=== PATIENT | female | born 1955 | race Caucasian/White ===

== ENCOUNTER 2019-07-18 14:30 | Inpatient (IN) | payer BC ==
[2019-07-18] MEDS ORDERED: POLYETHYL GLY 3350 17 GM/DOSE PO PRN (15:00)
[2019-07-18] MEDS ORDERED: ONDANSETRON 4 MG/2 ML VIAL IV PRN (15:00)
[2019-07-18] MEDS ORDERED: LOPERAMIDE HCL 2 MG CAPSULE PO PRN (15:00)
[2019-07-18] MEDS ORDERED: ONDANSETRON 4 MG (ODT) TAB PO PRN (15:00)
[2019-07-18 15:33] LABS: Absolute Lymphocytes (CBC) 2.9 K/uL (0.7-4.9); Basophils % 0.9 % (0-1.3); Lymphocytes % 24.7 % (15.3-44.8)
[2019-07-18 15:44] LABS: Protime INR 0.99
--- NOTE | 2019-07-18 15:52 | RAD REPORT ---
EXAM DESCRIPTION: CT - Stone Protocol - 07/18/2019 3:42 pm CLINICAL HISTORY: Flank pain. flank pain COMPARISON: CT ABD PELVIS W CONTRAST dated 12/25/2006 TECHNIQUE: Axial images were obtained without oral or IV contrast. Lack of contrast limits solid org an and vascular assessment. The [id number] spans the entirety of the system partially obscuring uppermost abdomen and lung bases. Coronal reformatted images were obtained and reviewed. All CT scans are performed using dose optimization technique as appropriate and may include automated exposure control or mA/KV adjustment according to patient size. FINDINGS: The lower lung morataya are clear. Mild diffuse fatty liver. The spleen is normal sized.The gallbladder is mildly distended. The pancrea s and adrenal glands are normal. No pathologic lymphadenopathy in the abdomen or pelvis. No urinary tract stones or obstructive uropathy. No bowel obstruction, free air, free fluid or abscess. Normal appendix noted. Mild lower lumbar spondylosis. IMPRESSION: No urinary tract stones or obstructive uropathy. Fatty liver. Gallbladder distension. Gallbladder ultrasound could be performed if further assessment is clinically needed.
--- NOTE | 2019-07-18 16:12 | RAD REPORT ---
EXAM DESCRIPTION: RAD - Chest Pa And Lat (2 Views) - 07/18/2019 4:06 pm CLINICAL HISTORY: flank pain Chest pain. COMPARISON: No comparisons TECHNIQUE: PA and lateral views of the chest were obtained. FINDINGS: The lungs are hyperexpanded compatible with COPD. The heart is upper limit of normal in si ze. No fracture or aggressive bony process. IMPRESSION: COPD without acute process identified.
[2019-07-18 16:14] LABS: Albumin 3.8 g/dL (3.4-5.0); Bilirubin Direct 0.1 mg/dL (0-0.2); Bilirubin Total 0.6 mg/dL (0.2-1.0); Magnesium 2.4 mg/dL (1.8-2.4); Phosphorus 3.4 mg/dL (2.5-4.9); Potassium 4.1 mmol/L (3.5-5.1); Protein, Total 8.1 g/dL (6.4-8.2); Thyroid Stimulating Hormone 1.41 uIU/mL (0.360-3.740)
[2019-07-18 16:49] VITALS: BMI 43.9
[2019-07-18] MEDS: NACHLORIDE 0.45% 1,000 ML IV SCH (17:07)
[2019-07-18] MEDS: HYDROMORPHONE HCL 1 MG/ML INJ IV PRN ×2 (18:57→21:38)
[2019-07-18 19:46] LABS: Urine Appearance CLEAR; Urine Bilirubin NEGATIVE (NEG); Urine Blood NEGATIVE (NEG); Urine Color YELLOW; Urine Glucose 3+ (NEG); Urine Protein NEGATIVE (NEG); Urine Urobilinogen 0.2 mg/dL (0.2-1.0); Urine pH 5.5 (5.0-7.0)
[2019-07-18 19:57] LABS: Urine Microscopic Reflex ORDER UMIC
[2019-07-18 20:05] LABS: UR MICROALBUMIN 0.6 mg/dL (< 1.9)
[2019-07-18 20:07] LABS: Urine Bacteria LOADED /HPF (<20); Urine Culture Reflex Order NOT NEEDED; Urine RBC NONE SEEN /HPF (NONE SEEN)
[2019-07-18] MEDS ORDERED: INSULN ASP SQ SCH (21:00)
[2019-07-18] MEDS ORDERED: HUMALOG MIX 75/25 100 UNITS/ML SQ SCH (21:00)
[2019-07-18] MEDS ORDERED: INSULIN ASPART PROT SQ SCH (21:00)
[2019-07-18] MEDS ORDERED: HOME MED 1 EA UNK (Metformin Hcl [Metformin Hcl] 1,000 MG) PO SCH (21:00)
[2019-07-18] MEDS ORDERED: ATORVASTATIN 10 MG TAB PO SCH (21:00)
[2019-07-18] MEDS: carvediloL 6.25 MG TAB PO SCH (21:00)
[2019-07-18] MEDS: DIPHENHYDRAMINE 25 MG TAB/CAP PO PRN (21:38)
[2019-07-18] MEDS ORDERED: CEFTRIAXONE 1 GM/NS 50 ML 1 GM/50 ML BAG IV SCH (22:00)
[2019-07-18] MEDS: CEFTRIAXONE/SWI 1gm 1 GM/10 ML SYR IV SCH (23:32)
[2019-07-19] MEDS: ACETAMINOPHEN 325 MG TABLET PO PRN (01:30)
[2019-07-19] MEDS: HYDROMORPHONE HCL 1 MG/ML INJ IV PRN ×6 (02:53→23:38)
[2019-07-19] MEDS: NACHLORIDE 0.45% 1,000 ML IV SCH ×2 (04:57→21:08)
[2019-07-19 05:59] LABS: Basophils % 0.4 % (0-1.3); Hematocrit 41.3 % (36.0-45.0); Lymphocytes % 21.2 % (15.3-44.8); RBC Red Blood Cell Count 4.77 M/uL (3.86-4.86)
[2019-07-19 06:02] LABS: Magnesium 2.5 mg/dL (1.8-2.4); Potassium 4.3 mmol/L (3.5-5.1)
[2019-07-19] MEDS ORDERED: METFORMIN HCL 500 MG TAB PO SCH (08:00)
[2019-07-19] MEDS ORDERED: INSULIN ASPART SQ SCH (08:00)
[2019-07-19] MEDS ORDERED: INSULIN ASPART PROTAMINE SQ SCH (08:00)
[2019-07-19] MEDS ORDERED: HUMALOG MIX 75/25 100 UNITS/ML SQ SCH (08:00)
--- NOTE | 2019-07-19 08:51 | RAD REPORT ---
EXAM DESCRIPTION: US - Abdomen Exam Limited - 07/19/2019 8:25 am CLINICAL HISTORY: GALL BLADDER DISTENSION. COMPARISON: Abdomen Exam Complete dated 10/07/2018 FINDINGS: The gallbladder demonstrates distention without evidence of gallstones. No pericholecystic fluid or gallbladder wall thickening. The common bile duct is normal measuring 5 mm.. The liver demonstrates no findings of intrahepatic biliary dilatation. IMPRESSION: Gallbladder distention without evidence of gallstones.
[2019-07-19] MEDS ORDERED: FUROSEMIDE 40 MG TABLET PO SCH (09:00)
[2019-07-19] MEDS ORDERED: PANTOPRAZOLE 40MG TABLET PO SCH (09:00)
[2019-07-19] MEDS ORDERED: POTASSIUM CL SA 10 MEQ TAB PO SCH (09:00)
[2019-07-19] MEDS ORDERED: HOME MED 1 EA UNK (Pravastatin Sodium [Pravastatin Sodium] 80 MG) PO SCH (09:00)
[2019-07-19] MEDS ORDERED: HOME MED 1 EA UNK (Omeprazole [Omeprazole] 20 MG) PO SCH (09:00)
[2019-07-19] MEDS: carvediloL 6.25 MG TAB PO SCH (09:00)
[2019-07-19] MEDS: CEFTRIAXONE/SWI 1gm 1 GM/10 ML SYR IV SCH (10:25)
[2019-07-19] MEDS: ENOXAPARIN 40 MG/0.4 ML SQ SCH (10:26)
[2019-07-19] MEDS: INSULN ASP SQ SCH ×2 (10:27→21:00)
[2019-07-19] MEDS: INSULIN ASPART PROT SQ SCH ×2 (10:27→21:00)
[2019-07-19] MEDS: CARVEDILOL 6.25 MG PO SCH ×2 (10:28→17:24)
[2019-07-19] MEDS: POTASSIUM CHLORIDE 10 MEQ ER TABLET PO SCH (10:29)
[2019-07-19] MEDS: FUROSEMIDE 40 MG TABLET PO SCH (10:29)
[2019-07-19] MEDS: OMEPRAZOLE 20 MG PO SCH (10:29)
[2019-07-19] MEDS: METFORMIN HCL 1000 MG PO SCH (17:24)
[2019-07-19] MEDS: PRAVASTATIN 80 MG PO SCH (17:25)
--- NOTE | 2019-07-19 18:06 | CON ---
Date of Consultation: 07/19/2019 Reason For Consultation: Abdominal pain. History Of Present Illness: The patient is a 64-year-old female who comes in with a couple of day hi story of right back and possibly right upper quadrant pain. Denies any nausea, vomiting, diarrhea, c onstipation. Denies any dysuria or hematuria. No sore throat, runny nose, cough, headaches, or dizz iness. No chest pain. No fever or chills. Occasional heartburn. No bloating or belching. She sta angela that the pain is sort of in the back where her previous kidney infection she hurt, but she does n ot have any of the other symptoms and she had a CAT scan done and ultrasound done which showed a dist ended gallbladder and I was consulted. Review of Systems: Otherwise unremarkable. Past Medical History: Diabetes, hypertension, obesity. Past Surgical History: Achilles tendon surgery and tubal ligation. Allergies: INCLUDE RAMIPRIL. Social History: Patient denies smoking or drinking. Family History: Noncontributory. Physical Examination: Vital Signs: Stable. She is afebrile. General: She is awake, alert, and oriented x3. Head and Neck: Cranial nerves 2 through 12 are grossly within normal limits. No neck masses. No JV D. Throat clear. Neck is supple. Chest: Clear. Heart: S1, S2. Abdomen: Soft, nondistended, positive bowel sounds. Minimal right lateral abdomen tenderness. Extremities: Adequately perfused. Nontender. Neuro: Nonfocal. Back: She has mild right CVA tenderness. Laboratory Data: Her urine which was a clean-catch shows 3+ glucose, positive nitrite, loaded bacter ia, 5-10 white cells. Hematology on admission, white count 11.9, today it is 9.6. There is no left shift. INR is 0.99. Chemistry reviewed. Glucose is slightly elevated. Otherwise unremarkable. CT of the abdomen-pelvis and ultrasound of the abdomen reviewed, does not show any cholelithiasis, does show a distended gallbladder without evidence of cholecystitis. Assessment: A 64-year-old female with a right-sided lateral abdominal pain and back pain. Recommendation: Although the likelihood of acute cholecystitis is low, we will go ahead and get a HI DA scan to rule that out. I discussed the case with Dr. Ross. We will also get a straight cath to m edyta sure there is not any UTI or pyelonephritis and once those tests had done, we will make further r ecommendation. No need for any acute surgical intervention at this time. We will follow this patien t while in the hospital. BIGG/JORDAN Voice ID: [id number] Report ID: [id number]
[2019-07-19 19:57] LABS: Urine Appearance CLEAR; Urine Bilirubin NEGATIVE (NEG); Urine Blood NEGATIVE (NEG); Urine Color YELLOW; Urine Glucose 3+ (NEG); Urine Protein NEGATIVE (NEG); Urine Urobilinogen 0.2 mg/dL (0.2-1.0)
[2019-07-19 20:47] LABS: Urine Microscopic Reflex NO UMIC
[2019-07-19] MEDS: DIPHENHYDRAMINE 25 MG TAB/CAP PO PRN (21:05)
--- NOTE | 2019-07-19 22:36 | PN ---
Subjective: Patient is feeling little better than yesterday. Denies chest pain, nausea, vomiting. Has some flank pain. Has also right upper quadrant pain now. Denies any double vision, blurred visi on, paralysis, tingling, numbness. Physical Examination: Vital Signs: Blood pressure 160/74, afebrile at 97.4. HEENT: No JVD. No carotid bruits. Chest: Clear. Heart: Regular. Abdomen: Right upper quadrant tender. No rebound. No guarding. Laboratory Examination: White count is down to 9.6. Urine culture has trace positive nitrites, but not enough to explain the amount of pain she has. Ordered sonogram which shows dilatation of the gal lbladder and Dr. Summers has ordered HIDA scan for tomorrow. Assessment And Plan: Unclear whether pain is from cholecystitis or pyelonephritis. The amount of pa in she has is not explained by the nitrites positive trace. I will order another UA, urine culture, straight cath to clarify this and HIDA scan tomorrow by Dr. Summers. JOYCELYN/MODL Voice ID: [id number] Report ID: [id number]
[2019-07-20 05:52] LABS: Absolute Lymphocytes (CBC) 2.1 K/uL (0.7-4.9); Basophils % 0.7 % (0-1.3); Hematocrit 43.7 % (36.0-45.0); Lymphocytes % 22.8 % (15.3-44.8)
[2019-07-20 06:09] LABS: Magnesium 2.5 mg/dL (1.8-2.4); Potassium 4.2 mmol/L (3.5-5.1)
[2019-07-20] MEDS: HYDROMORPHONE HCL 1 MG/ML INJ IV PRN ×5 (06:56→23:17)
[2019-07-20] MEDS: METFORMIN HCL 1000 MG PO SCH ×2 (08:00→18:58)
[2019-07-20] MEDS: INSULIN ASPART PROT SQ SCH ×2 (08:00→20:35)
[2019-07-20] MEDS: INSULN ASP SQ SCH ×2 (08:00→20:35)
--- NOTE | 2019-07-20 08:09 | RAD REPORT ---
EXAM DESCRIPTION: NM - Hepatobiliary System W/ Ph - 07/20/2019 7:14 am CLINICAL HISTORY: Abdominal pain TECHNIQUE: The patient was administered 6.3 millicuries technetium Choletec intravenous and images o f the abdomen obtained for 19 minutes. Patient was given 2.8 micrograms Kinevac intravenously and sofia ges of the gallbladder obtained for 30 minutes FINDINGS: Liver demonstrates prompt radiotracer uptake. Activity is seen within the gallbladder by 11 minutes. After the administration of cck gallbladder ejection fraction equals 36% (normal values greater than 35% Uptake is seen within small bowel. Patient complained of pain 8/10 prior to CCK. Pain increased to 10/10 during administration CCK IMPRESSION: No evidence of acute cholecystitis Gallbladder ejection fraction equals 36% which is lower limits normal
[2019-07-20] MEDS: ACETAMINOPHEN 325 MG TABLET PO PRN (08:46)
[2019-07-20] MEDS: ENOXAPARIN 40 MG/0.4 ML SQ SCH (08:47)
[2019-07-20] MEDS: CEFTRIAXONE/SWI 1gm 1 GM/10 ML SYR IV SCH (08:47)
[2019-07-20] MEDS: OMEPRAZOLE 20 MG PO SCH (08:48)
[2019-07-20] MEDS: FUROSEMIDE 40 MG TABLET PO SCH (08:48)
[2019-07-20] MEDS: POTASSIUM CHLORIDE 10 MEQ ER TABLET PO SCH (08:49)
[2019-07-20] MEDS: CARVEDILOL 6.25 MG PO SCH ×2 (08:49→17:34)
[2019-07-20 08:55] VITALS: O2SAT 98
[2019-07-20] MEDS: NACHLORIDE 0.45% 1,000 ML IV SCH (10:46)
--- NOTE | 2019-07-20 16:45 | P.PN ---
Subjective Date of Service: 07/20/19 Chief Complaint: STILL SEVERE PAIN R BACK, R FLANK. AND SOME PAIN RUQ. Subjective: No new changes PATIENT IS STILL UNCOMFORTABLE TURNING IN BED , GETTING UP ETC. Review of Systems Eyes: As per HPI Physical Examination - Vital Signs Temperature: 98.6 F Blood Pressure: 197/85 Pulse: 66 Respirations: 17 Pulse Ox (%): 98 - Physical Exam General: Alert, Moderate distress, Obese HEENT: Atraumatic, PERRLA, EOMI Neck: Supple, JVD not distended Respiratory: Clear to auscultation bilaterally, Normal air movement Cardiovascular: Regular rate/rhythm, Normal S1 S2 Gastrointestinal: Normal bowel sounds, No tenderness Musculoskeletal: No tenderness Integumentary: No rashes Neurological: Normal speech, Normal tone, Normal affect Lymphatics: No axilla or inguinal lymphadenopathy - Studies Laboratory Data (last 24 hrs) 07/20/19 05:33: Sodium 136, Potassium 4.2, BUN 16, Creatinine 0.98, Glucose 142 H, Magnesium 2.5 H 07/20/19 05:33: WBC 9.3, Hgb 14.8, Hct 43.7, Plt Count 251 Microbiology Data (last 24 hrs): 07/18/19 19:35 Clean Catch Urine Helm Count - Final >100,000 CFU/ML. 07/18/19 19:35 Clean Catch Urine - Final Klebsiella Pneumoniae Medications List Reviewed: Yes Assessment And Plan - Current Problems (Diagnosis) (1) Flank pain Current Visit: Yes Status: Acute Plan: UA NEG. CT NEG. STILL IN SEVERE PAIN. ORDER MRI LS. MORBID OBESITY CAN GIVE RISE TO SPINAL ISSUES. (2) RUQ abdominal pain Current Visit: Yes Status: Acute Plan: TENDER RUQ. SONOGRAM ENLARGED GB BUT HIDA SCAN IS GOOD. EF 36%. (3) HTN (hypertension) Current Visit: Yes Status: Chronic Plan: ADD AMLODOPINE DAILY. 2.5 MG.
[2019-07-20] MEDS: AMLODIPINE 2.5 MG TAB PO SCH ×2 (17:00→19:01)
[2019-07-20] MEDS: PRAVASTATIN 80 MG PO SCH (18:57)
--- NOTE | 2019-07-20 18:59 | RAD REPORT ---
EXAM DESCRIPTION: MRI - Lumbar Spine Wo Con - 07/20/2019 6:02 pm CLINICAL HISTORY: flank pain COMPARISON: No comparisons TECHNIQUE: Sagittal T1-weighted, T2-weighted and T2-STIR weighted sequences were obtained. Axial T1 -weighted and heavily T2-weighted sequenceswere obtained through the lumbar disc levels. FINDINGS: Lumbar bodies are normal in height and alignment. No suspicious marrow signal. No paraspi nal masses. Conus is normal with no clumping or thickening of the cauda equina. T12-L1 level: No significant findings. L1-2 level: No significant findings. L2-3 level: Disc is desiccated. Focal midline disc herniation is present 3 mm AP by 11 mm TR. There i s flattening of the thecal sac. Midline thecal sac diameter is 9 mm. Disc bulge in the left exit fora men does not cause significant encroachment. Facet degenerative changes mild. Ligamentous thickening is mild. L3-4 level: Disc is desiccated. Mild bulging of disc material across the central canal and into each exit foramen. No central spinal stenosis or significant foraminal stenosis. L4-5 level: Disc is desiccated. Minimal disc bulge seen in the central canal. Facet degenerative bill ge and ligamentous thickening are present. Significant protruding disc material and endplate spurring changes cause moderately severe right foraminal stenosis extending into the extraforaminal space. No significant left foramen stenosis. Central canal is borderline stenotic at 10 mm. L5-S1 level: Disc is desiccated. Minimal disc bulge causes slight flattening of the thecal sac on the right side but no central spinal stenosis. No foraminal stenosis. IMPRESSION: Midline L2-3 disc herniation resulting in mild central spinal stenosis. No significant f oraminal stenosis. L4-5 prominent protruding disc material, uncovertebral joint hypertrophy and facet degenerative angel es causing significant right foraminal stenosis. Central canal is mildly stenotic at 9 mm.
[2019-07-21] MEDS: HYDROMORPHONE HCL 1 MG/ML INJ IV PRN ×3 (02:30→09:59)
[2019-07-21 06:08] LABS: Absolute Lymphocytes (CBC) 3.2 K/uL (0.7-4.9); Basophils % 0.6 % (0-1.3); Hematocrit 41.8 % (36.0-45.0); Lymphocytes % 32.6 % (15.3-44.8); MPV 6.9 fL (7.6-11.3); RBC Red Blood Cell Count 4.85 M/uL (3.86-4.86)
[2019-07-21 06:54] LABS: Magnesium 2.5 mg/dL (1.8-2.4); Potassium 3.9 mmol/L (3.5-5.1)
[2019-07-21] MEDS: METFORMIN HCL 1000 MG PO SCH (08:19)
[2019-07-21] MEDS: CEFTRIAXONE/SWI 1gm 1 GM/10 ML SYR IV SCH (08:19)
[2019-07-21] MEDS: POTASSIUM CHLORIDE 10 MEQ ER TABLET PO SCH (08:20)
[2019-07-21] MEDS: OMEPRAZOLE 20 MG PO SCH (08:20)
[2019-07-21] MEDS: FUROSEMIDE 40 MG TABLET PO SCH (08:20)
[2019-07-21] MEDS: CARVEDILOL 6.25 MG PO SCH (08:21)
[2019-07-21] MEDS: ENOXAPARIN 40 MG/0.4 ML SQ SCH (08:22)
[2019-07-21] MEDS: AMLODIPINE 2.5 MG TAB PO SCH (08:22)
[2019-07-21] MEDS: INSULIN ASPART PROT SQ SCH (08:25)
[2019-07-21] MEDS: INSULN ASP SQ SCH (08:25)
[2019-07-21] MEDS ORDERED: AMLODIPINE 2.5 MG TAB PO SCH (09:00)
--- NOTE | 2019-07-21 10:00 | RAD REPORT ---
EXAM DESCRIPTION: CT - Dissection W/Wo Con - 07/21/2019 9:25 am CLINICAL HISTORY: . Chest and abd pain COMPARISON: July 18, 2019 TECHNIQUE: Computed tomography angiography of the chest, abdomen pelvis were obtained. 100 cc Isovue 370 was administered intravenously. Coronal and sagittal reconstruction were performed. All CT scans are performed using dose optimization technique as appropriate and may include automated exposure control or mA/KV adjustment according to patient size. FINDINGS: An aortic dissection is not seen. An aortic aneurysm is not displayed. The celiac, SMA and JOVANA are patent . A lung consolidation is not present. A pericardial effusion is not seen. A pleural effusion is not n oted. Fatty liver. Mild gallbladder distention Spleen, pancreas adrenals kidneys demonstrate no significant abnormality. The appendix is normal. There no evidence diverticulitis. IMPRESSION: Negative for an aortic dissection. Mild gallbladder distention
[2019-07-21 12:43] VITALS: BP 193/78; TEMP 97
[2019-07-21] MEDS ORDERED: AMITRIPTYLINE 10 MG TAB PO SCH (21:00)
== END 2019-07-21 13:51 | disposition home or self-care (01) | DRG 392 ==
LOC: 2ND 14:30 → OBSVTOIN 07-20 07:26
PROVIDERS: ADMIT Internal Medicine; ATTEND Internal Medicine
DX: R10.11 Right upper quadrant pain (principal); Z68.41 Body mass index [BMI] 40.0-44.9, adult; E66.01 Morbid (severe) obesity due to excess calories; E11.9 Type 2 diabetes mellitus without complications; I10 Essential (primary) hypertension; Z98.51 Tubal ligation status; Z88.1 Allergy status to other antibiotic agents; Z88.8 Allergy status to other drugs, medicaments and biological substances; Z79.4 Long term (current) use of insulin; Z79.899 Other long term (current) drug therapy
CPT/HCPCS: 36415; 71046; 71270; 72148; 72194; 74170; 74176; 76377; 76705; 78227; 80048; 80076; 81003; 81015; 82043; 82306; 82570; 82607; 82947; 83036; 83735; 84100; 84443; 85025; 85610; 85730; 87077; 87086; 87088; 87186; A9537; G0378; J0696; J1170; J1650; J1815; J2405; J2805; Q9967

== ENCOUNTER 2021-02-07 20:25 | Inpatient (IN) | payer OTHER, MEDICARE ==
[2021-02-07 22:08] LABS: Basophils % 1.2 % (0-1.3); Hematocrit 45.8 % (36.0-45.0); Lymphocytes % 27.6 % (15.3-44.8); MPV 6.6 fL (7.6-11.3)
[2021-02-07 22:24] LABS: Albumin 3.5 g/dL (3.4-5.0); Bilirubin Direct 0.2 mg/dL (0-0.2); Bilirubin Total 0.7 mg/dL (0.2-1.0); Potassium 4.1 mmol/L (3.5-5.1); Protein, Total 7.7 g/dL (6.4-8.2)
[2021-02-07] MEDS ORDERED: NA CHLORIDE 0.9% 1,000 ML ONE (23:37)
[2021-02-07] MEDS ORDERED: ONDANSETRON 4 MG/2 ML VIAL ONE (23:37)
[2021-02-07] MEDS ORDERED: MORPHINE 4 MG/ML SYR ONE (23:37)
--- NOTE | 2021-02-08 01:05 | EDPHYS ---
Physician Documentation [facility] Name: Deb Lozada Age: 66 yrs Sex: Female : 1955 Arrival Date: 02/07/2021 Time: 20:58 Bed 15 Private MD: ED Physician Eduardo Sierra HPI: 02/07 22:47 This 66 yrs old Female presents to ER via Ambulatory with complaints of Abdominal Pain, kb Back Pain. 22:47 The patient presents with abdominal pain in the left upper quadrant. Onset: The kb symptoms/episode began/occurred yesterday. The symptoms do not radiate. Associated signs and symptoms: Pertinent positives: nausea. The symptoms are described as constant. Modifying factors: The symptoms are alleviated by nothing, the symptoms are aggravated by nothing. Severity of pain: At its worst the pain was moderate in the emergency department the pain is unchanged. The patient has experienced a previous episode. The patient has not recently seen a physician. Pt reports LUQ pain that radiates to back since yesterday. states she had pancreatitis in the past and is concerned she has that again. Historical: - Allergies: 21:45 Altase; lp1 - PMHx: 21:45 Diabetes - NIDDM; Hypertension; HLD; lp1 - PSHx: 21:45 None; lp1 - Immunization history:: Adult Immunizations up to date, Client reports receiving the 2nd dose of the Covid vaccine. - Social history:: Smoking status: . ROS: 22:46 Constitutional: Negative for fever, chills, and weight loss. kb 22:46 Abdomen/GI: Positive for abdominal pain, nausea, Negative for vomiting, diarrhea. 22:46 All other systems are negative. Exam: 22:46 Constitutional: This is a well developed, well nourished patient who is awake, alert, kb and in no acute distress. Head/Face: Normocephalic, atraumatic. ENT: Moist Mucous membranes Cardiovascular: Regular rate and rhythm with a normal S1 and S2. No gallops, murmurs, or rubs. No pulse deficits. Respiratory: Respirations even and unlabored. No increased work of breathing. Talking in full sentences Skin: Warm, dry with normal turgor. Normal color. MS/ Extremity: Pulses equal, no cyanosis. Neurovascular intact. Full, normal range of motion. Neuro: Awake and alert, GCS 15, oriented to person, place, time, and situation. Moves all extremities. Normal gait. Psych: Awake, alert, with orientation to person, place and time. Behavior, mood, and affect are within normal limits. 22:46 Abdomen/GI: Inspection: abdomen appears normal, Bowel sounds: normal, Palpation: soft, in all quadrants, mild abdominal tenderness, in the epigastric area, moderate abdominal tenderness, in the left upper quadrant. Vital Signs: 21:46 BP 161 / 83; Pulse 75; Resp 18; Temp 98.2; Pulse Ox 99% on R/A; Weight 130.18 kg; lp1 Height 5 ft. 10 in. (177.80 cm); Pain 7/10; 23:58 BP 170 / 73; Pulse 76; Resp 18; Temp 98.6(O); Pulse Ox 98% on R/A; mk 02/08 00:47 BP 145 / 72; Pulse 70; Resp 18; Pulse Ox 99% on R/A; mk 01:44 BP 124 / 76; Pulse 104; Resp 18; Pulse Ox 98% on R/A; mk 02:44 BP 127 / 86; Pulse 99; Resp 18; Temp 99; Pulse Ox 99% on R/A; mk 02/07 21:46 Body Mass Index 41.18 (130.18 kg, 177.80 cm) lp1 [place] Coma Score: 01:44 Eye Response: spontaneous(4). Verbal Response: oriented(5). Motor Response: obeys mk commands(6). Total: 15. 02:44 Eye Response: spontaneous(4). Verbal Response: oriented(5). Motor Response: obeys mk commands(6). Total: 15. MDM: 02/07 21:46 Patient medically screened. kb 22:46 Data reviewed: vital signs, nurses notes. Data interpreted: Pulse oximetry: on room air kb is 99 %. Interpretation: normal. 02/08 01:02 Counseling: I had a detailed discussion with the patient and/or guardian regarding: the kb historical points, exam findings, and any diagnostic results supporting the discharge/admit diagnosis, lab results, radiology results, the need for further work-up and treatment in the hospital. Physician consultation: Pato Larkin MD was contacted at 01:02, regarding consult, patient's condition, and will see patient in inpatient room, wants pt admitted to him with orders for antibiotics, NPO, and pain medication. Requests hospitalist consult to manage diabetes. Hospitalist notified of consult and at bedside for evaluation. 02/07 21:47 Order name: Basic Metabolic Panel kb 02/07 21:47 Order name: CBC with Diff kb 02/07 21:47 Order name: Hepatic Function; Complete Time: 22:28 kb 02/07 21:47 Order name: Lipase; Complete Time: 22:28 kb 02/07 21:47 Order name: Basic Metabolic Panel; Complete Time: 22:28 EDMS 02/07 21:47 Order name: CBC with Automated Diff; Complete Time: 22:28 EDMS 02/07 21:47 Order name: CT Abd/Pelvis - IV Contrast Only 02/07 23:21 Order name: US Abdomen Limited 02/08 00:57 Order name: CORONAVIRUS (COVID-19) : Document "Date of Symptom Onset" if Symptomatic. 02/08 02:19 Order name: SARS-COV-2 RT PCR EDMS 02/07 21:47 Order name: IV Saline Lock; Complete Time: 21:57 kb 02/07 21:47 Order name: Labs collected and sent; Complete Time: 21:57 kb Administered Medications: 02/07 23:41 Drug: NS 0.9% 1000 ml Route: IV; Rate: 1000 ml; Site: left antecubital; mr2 23:41 Drug: Zofran (Ondansetron) 4 mg Route: IVP; Site: left antecubital; mr2 23:41 Drug: morphine 4 mg Route: IVP; Site: left antecubital; mr2 02/08 01:55 Drug: Zosyn (piperacillin-tazobactam) 3.375 grams Route: IVPB; Rate: 100 ml/hr; Infused mk Over: 60 mins; Site: right antecubital; Disposition: 06:08 Co-signature as Attending Physician, Eduardo Sierra MD I agree with the assessment and rn plan of care. Attestation: The patient's history, exam findings, diagnostics, and a summary of any interventions or procedures was reviewed in detail with Josefina CRUM. Disposition Summary: 02/08/21 01:04 Hospitalization Ordered Hospitalization Status: Observation Provider: Trae, Pato kb Location: Telemetry/MedSurg (observation) kb Condition: Stable kb Problem: new kb Symptoms: are unchanged kb Bed/Room Type: Standard Room Assignment: 208(02/08/21 03:36) Diagnosis - Other cholelithiasis without obstruction kb - Cholecystitis, unspecified kb Forms: - Medication Reconciliation Form kb - SBAR form kb Signatures: Dispatcher [employer] EDOR Josefina Sosa, BUHR DRESSER-C BUHR DRESSER-CkEduardo Adhikari MD MD rn Maisha Smith RN RN lp1 Leandra Padron RN RN cg Aidan Ma RN RN mr2 Na Paredes RN RN Corrections: (The following items were deleted from the chart) 00:43 02/07 22:46 Abdomen/GI: Inspection: abdomen appears normal, Bowel sounds: normal, kb Palpation: soft, in all quadrants, mild abdominal tenderness, in the right upper quadrant, moderate abdominal tenderness, in the left upper quadrant, kb 02/08 03:36 01:04 kb
--- NOTE | 2021-02-08 01:05 | ER ---
Nurse's Notes [facility] Name: Deb Lozada Age: 66 yrs Sex: Female : 1955 Arrival Date: 02/07/2021 Time: 20:58 Bed 15 Private MD: Diagnosis: Other cholelithiasis without obstruction;Cholecystitis, unspecified Presentation: 02/07 21:43 Chief complaint: Patient states: yesterday pain to LUQ abdominal area and back has lp1 worsened; reports nausea. Coronavirus screen: At this time, the client does not indicate any symptoms associated with coronavirus-19. Ebola Screen: No symptoms or risks identified at this time. Risk Assessment: Do you want to hurt yourself or someone else? Patient reports no desire to harm self or others. Onset of symptoms was February 07, 2021. 21:43 Method Of Arrival: Ambulatory lp1 21:43 Acuity: CHAPARRITA 3 lp1 21:46 Initial Sepsis Screen: Does the patient meet any 2 criteria? No. Patient's initial lp1 sepsis screen is negative. Does the patient have a suspected source of infection? No. Patient's initial sepsis screen is negative. Historical: - Allergies: 21:45 Altase; lp1 - PMHx: 21:45 Diabetes - NIDDM; Hypertension; HLD; lp1 - PSHx: 21:45 None; lp1 - Immunization history:: Adult Immunizations up to date, Client reports receiving the 2nd dose of the Covid vaccine. - Social history:: Smoking status: . Screenin:47 Abuse screen: Denies threats or abuse. Denies injuries from another. Nutritional lp1 screening: No deficits noted. Tuberculosis screening: No symptoms or risk factors identified. 02/08 03:46 Fall Risk No fall in past 12 months (0 pts). No secondary diagnosis (0 pts). IV access mk (20 points). Ambulatory Aid- None/Bed Rest/Nurse Assist (0 pts). Gait- Normal/Bed Rest/Wheelchair (0 pts) Mental Status- Oriented to own ability (0 pts). Total [place] Fall Scale indicates No Risk (0-24 pts). Assessment: 00:00 Pain: Pain: Complains of pain in abdomen Pain does not radiate. Pain currently is 6 out mk of 10 on a pain scale. Quality of pain is described as aching, Pain began gradually, Is lasting more than 1 hour. 00:00 General: Appears in no apparent distress. Behavior is calm. Neuro: Level of mk Consciousness is awake, alert, obeys commands, Oriented to person, place, time, situation, [employer] Laboratory Director are equal bilaterally Moves all extremities. Gait is steady, Speech is normal. Cardiovascular: Heart tones S1 S2 present Pulses are 2+ in right radial artery, right dorsalis pedis artery, left radial artery and left dorsalis pedis artery Rhythm is regular. Respiratory: Airway is patent Trachea midline Respiratory effort is even, unlabored, Respiratory pattern is regular, symmetrical, Breath sounds are clear. GI: Bowel sounds present X 4 quads. Abd is soft X 4 quads Abdomen is tender to palpation in left upper quadrant Reports upper abdominal pain, nausea. : No signs and/or symptoms were reported regarding the genitourinary system. Derm: Skin is intact, is healthy with good turgor, Skin is dry, Skin is pink, warm \T\ dry. Skin temperature is warm. Musculoskeletal: Range of motion: intact in all extremities. 00:56 Reassessment: Patient and/or family updated on plan of care and expected duration. Pain mk level reassessed. Patient is alert, oriented x 3, equal unlabored respirations, skin warm/dry/pink. Patient states feeling better. Pain: Complains of pain in abdomen Pain does not radiate. Pain currently is 3 out of 10 on a pain scale. Quality of pain is described as aching. 02:01 Reassessment: Patient and/or family updated on plan of care and expected duration. Pain mk level reassessed. Patient is alert, oriented x 3, equal unlabored respirations, skin warm/dry/pink. Patient states feeling better. Vital Signs: 02/07 21:46 BP 161 / 83; Pulse 75; Resp 18; Temp 98.2; Pulse Ox 99% on R/A; Weight 130.18 kg; lp1 Height 5 ft. 10 in. (177.80 cm); Pain 08/25; 23:58 BP 170 / 73; Pulse 76; Resp 18; Temp 98.6(O); Pulse Ox 98% on R/A; mk 02/08 00:47 BP 145 / 72; Pulse 70; Resp 18; Pulse Ox 99% on R/A; mk 01:44 BP 124 / 76; Pulse 104; Resp 18; Pulse Ox 98% on R/A; mk 02:44 BP 127 / 86; Pulse 99; Resp 18; Temp 99; Pulse Ox 99% on R/A; mk 02/07 21:46 Body Mass Index 41.18 (130.18 kg, 177.80 cm) lp1 [place] Coma Score: 01:44 Eye Response: spontaneous(4). Verbal Response: oriented(5). Motor Response: obeys mk commands(6). Total: 15. 02:44 Eye Response: spontaneous(4). Verbal Response: oriented(5). Motor Response: obeys mk commands(6). Total: 15. ED Course: 02/07 20:58 Patient arrived in ED. es 21:44 Triage completed. lp1 21:45 Arm band placed on right wrist. lp1 21:46 Josefina Sosa FNP-C is PSYCHIATRICP. kb 21:46 Eduardo Sierra MD is Attending Physician. kb 21:57 Initial lab(s) drawn, by in, sent to lab. Inserted saline lock: 20 gauge in right lp1 antecubital area, using aseptic technique. Blood collected. 22:42 CT Abd/Pelvis - IV Contrast Only In Process Unspecified. EDMS 23:12 Na Paredes, RN is Primary Nurse. mk 23:12 Basic Metabolic Panel Sent. 23:12 CBC with Diff Sent. 02/08 00:12 US Abdomen Limited In Process Unspecified. EDMS 01:04 Pato Larkin MD is Hospitalizing Provider. kb 03:37 No provider procedures requiring assistance completed. mk 03:38 Patient has correct armband on for positive identification. Allergy band placed. Placed mk in gown. Bed in low position. Call light in reach. Side rails up X 1. 03:46 Patient admitted, IV remains in place. Administered Medications: 02/07 23:41 Drug: NS 0.9% 1000 ml Route: IV; Rate: 1000 ml; Site: left antecubital; mr2 23:41 Drug: Zofran (Ondansetron) 4 mg Route: IVP; Site: left antecubital; mr2 23:41 Drug: morphine 4 mg Route: IVP; Site: left antecubital; mr2 02/08 01:55 Drug: Zosyn (piperacillin-tazobactam) 3.375 grams Route: IVPB; Rate: 100 ml/hr; Infused mk Over: 60 mins; Site: right antecubital; Outcome: 01:04 Decision to Hospitalize by Provider. kb 03:46 Admitted to Tele 03:46 Condition: stable 03:46 Instructed on the need for admit. 03:51 Patient left the ED. Signatures: Dispatcher [employer] Josefina Hyatt, GIRISH-Brett LATIFP-Agata De La Paz Laura, RN RN lp1 Aidan Ma RN RN mr2 Na Paredes RN RN
--- NOTE | 2021-02-08 01:35 | P.CNS ---
Date of Consult: 02/08/21 Reason for Consult: Medical management Requesting Physician: Pato Larkin Primary Care Provider: Dr. Ross-out of [facility] Chief Complaint: Abdominal pain History of Present Illness: 66-year-old female with history of diabetes mellitus type 2insulin- dependent, hypertension, hyperlipidemia presents emergency department for left- sided abdominal pain. Patient reports pain has been off and on over the course last 2 weeks but persistent last couple days. Pain is worse after eating described as sharp radiating around the left flank to her back. Patient was evaluated in the emergency department labs were significant for white blood cell count 10.7 hemoglobin 15.6 medical 45.8 GFR [address] 120[address] Patient had CT scan which demonstrated gallbladder distention, follow-up ultrasound revealed distend ed gallbladder with cholelithiasis, pericholecystic fluid. Case was discussed with general surgery who is on-call who recommends observation admission with consultation to the hospitalist service. Allergies ramipril [From Altace] Adverse Reaction (Severe, Verified 07/18/19 16:16) Anaphylaxis Home Medications: Empagliflozin [Jardiance] 25 mg PO DAILY 07/18/19 Furosemide [Lasix*] 40 mg PO DAILY 07/18/19 Insulin Aspart Prot/Insuln Asp [Novolog Mix 70-30 Flexpen] 40 units SQ BEDTIME 07/18/19 Insulin Aspart Prot/Insuln Asp [Novolog Mix 70-30 Flexpen] 60 units SQ DAILY WITH BREAKFAST 07/18/19 Metformin HCl 1,000 mg PO BID 07/18/19 Omeprazole 20 mg PO DAILY 07/18/19 Potassium Oral Tab [Klor-Con 10 mEq Tab*] 10 meq PO DAILY 07/18/19 Pravastatin Sodium 80 mg PO DAILY 07/18/19 carvediloL [Carvedilol] 6.25 mg PO BID 07/18/19 Acetaminophen [Tylenol*] 650 mg PO Q6HP PRN tab 07/21/19 Amlodipine [Norvasc*] 2.5 mg PO DAILY #90 tab 07/21/19 Cefuroxime [Ceftin] 250 mg PO BID #10 tab 07/21/19 Gabapentin [Neurontin*] 100 mg PO TID #90 cap 07/21/19 Tramadol HCl [Ultram] 50 mg PO Q8H #21 tablet 07/21/19 - Past Medical/Surgical History Diabetic: Yes -: Hypertension -: Diabetes mellitus type 2 -: High Cholesterol -: Reflux -: Left Achiles Reattachment -: Tubal ligation Psychosocial/ Personal History: 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 moist/pink, EOMI, Sclerae nonicteric Neck: Supple, 2+ carotid pulse no bruit, No LAD, Without JVD or thyroid abnormality Respiratory: Clear to auscultation bilaterally, Normal air movement Cardiovascular: Regular rate/rhythm, Normal S1 S2 Gastrointestinal: Normal bowel sounds, No masses, No rebound, No guarding, Tenderness (Mild left upper quadrant abdominal tenderness, no right upper quadrant or epigastric tenderness) Musculoskeletal: No tenderness Integumentary: No rashes Neurological: Normal gait, Normal speech, Normal tone, Normal affect Lymphatics: No axilla or inguinal lymphadenopathy Laboratory Data (last 24 hrs) 02/07/21 21:55: WBC 10.70, Hgb 15.6 H, Hct 45.8 H, Plt Count 315 02/07/21 21:55: Sodium 137, Potassium 4.1, BUN 10, Creatinine 0.86, Glucose 120 H, Total Bilirubin 0.7, AST 15, ALT 24, Alkaline Phosphatase 92, Lipase 131 Conclusions/Impression: Assessment: Epigastric pain with ultrasound findings significant for distended gallbladder with pericholecystic fluid Diabetes mellitus type 2insulin-dependent Hypertension Hyperlipidemia Obstructive sleep apnea Plan: Epigastric pain with ultrasound findings significant for distended gallbladder with pericholecystic fluid: N.p.o., IVF, Zosyn, surgical consult in place. IV Protonix. Diabetes mellitus type 2insulin-dependent: Every 6 hours Accu-Chek, sliding scale insulin therapy. Obtain verify home medication restart as appropriate. Hypertension: As needed blood pressure medication as patient is n.p.o. Restart home medications when appropriate Hyperlipidemia: Hold oral medications at this time restart when appropriate Obstructive sleep apnea: Provide with nighttime CPAP as needed. DVT PPX: SCD Code status: Full code Critical Care: No Time Spent Managing Pts care (In Minutes): 35
[2021-02-08] MEDS ORDERED: NA CHLORIDE 0.9% 100 ML ONE (01:40)
[2021-02-08] MEDS ORDERED: PIPERACIL/TAZO 3.375 GM VIAL IV ONE (01:43)
[2021-02-08] MEDS ORDERED: SODIUM CHLORIDE 0.9% 10ML INJ IV PRN (04:14)
[2021-02-08] MEDS ORDERED: ONDANSETRON 4 MG/2 ML VIAL IV PRN (04:14)
[2021-02-08] MEDS ORDERED: MORPHINE 2 MG/ML SYR IV PRN (04:14)
[2021-02-08] MEDS: NA CHLORIDE 0.9% 1,000 ML IV SCH ×2 (04:27→14:14)
[2021-02-08 05:33] LABS: Absolute Lymphocytes (CBC) 2.5 K/uL (0.7-4.9); Basophils % 0.8 % (0-1.3); Lymphocytes % 27.2 % (15.3-44.8); MPV 6.4 fL (7.6-11.3); RBC Red Blood Cell Count 4.77 M/uL (3.86-4.86)
[2021-02-08 05:38] VITALS: BMI 41.1
[2021-02-08 05:54] LABS: Albumin 3.3 g/dL (3.4-5.0); Bilirubin Total 0.9 mg/dL (0.2-1.0); Protein, Total 7.1 g/dL (6.4-8.2)
--- NOTE | 2021-02-08 06:02 | P.PN ---
Subjective Date of Service: 02/08/21 Primary Care Provider: Dr. oRss-out of town Chief Complaint: Abdominal pain Subjective: Other (Patient still reports some pain to the right upper quadrant.) Physical Examination - Vital Signs Temperature: 97 F Blood Pressure: 141/71 Pulse: 73 Respirations: 16 Pulse Ox (%): 98 - Studies Laboratory Data (last 24 hrs) 02/07/21 21:55: WBC 10.70, Hgb 15.6 H, Hct 45.8 H, Plt Count 315 02/07/21 21:55: Sodium 137, Potassium 4.1, BUN 10, Creatinine 0.86, Glucose 120 H, Total Bilirubin 0.7, AST 15, ALT 24, Alkaline Phosphatase 92, Lipase 131 Assessment & Plan Discharge Plan: Home Plan to discharge in: 48 Hours Physician Review Additional Text: COVID: negative ABUS: Liver demonstrates increased echogencity. No focal areas of increased or decreased echogenicity was seen. Gallbladder demonstrate to be distended measuring 10.7 x 4.2 cm. There is a tiny echogenicity structure within the gallbladder wall measuring 6.4 mm perhaps corresponding to a gallbladder polyp and/or cholesterol crystal. Minimal layering high density material within the dependent portion corresponding to gravel/tiny calculi. There is pericholecystic fluid. No definitive wall thickening. The common bile duct measuring 5.3 mm. No intra- or intrahepatic biliary duct dilatation was identified. There is no evidence of significant free fluid within the upper abdomen. Impression Distended gallbladder with cholelithiasis. Pericholecystic fluid. CT scan: Mild cardiomegaly. Lungs clear. Fatty liver noted. Borderline splenomegaly. Stable gallbladder distention without inflammation or biliary dilation. Stable fatty replacement of the pancreas without inflammation. Adrenal glands, kidneys, uterus, ovaries and urinary bladder are normal. No bowel inflammation, obstruction, free intraperitoneal air or ascites. Appendix is normal. Chronic degenerative changes in the spine without acute fracture or aggressive osseous lesion. Impression No new abdominal or pelvic abnormalities. Mild cardiomegaly, Steatosis of the liver with hepatomegaly, borderline splenomegaly and stable gallbladder distention. Physical Exam: General: Alert, In no apparent distress, Oriented x3 HEENT: Atraumatic, PERRLA, Mucous membr. moist/pink, EOMI, Sclerae nonicteric Neck: Supple, 2+ carotid pulse no bruit, No LAD, Without JVD or thyroid abnormality Respiratory: Clear to auscultation bilaterally, Normal air movement Cardiovascular: Regular rate/rhythm, Normal S1 S2 Gastrointestinal: Pain to the right upper quadrant noted. Pain appears improved. Musculoskeletal: No tenderness Integumentary: No rashes Neurological: Normal gait, Normal speech, Normal tone, Normal affect Lymphatics: No axilla or inguinal lymphadenopathy Laboratory Data (last 24 hrs) Impression: Epigastric pain with ultrasound findings significant for distended gallbladder with pericholecystic fluid likely secondary to acute cholecystitis with cholelithiasis Diabetes mellitus type 2insulin-dependent Hypertension Hyperlipidemia Obstructive sleep apnea GERD Diabetic neuropathy Fatty liver Obesity, BMI 41 Plan: Epigastric pain with ultrasound findings significant for distended gallbladder with pericholecystic fluid likely secondary to acute cholecystitis with cholelithiasis: Patient remains n.p.o. at this time. Continue IV fluids and IV antibiotic therapyZosyn. Will change IV morphine to IV Dilaudid. Await surgical evaluation. Patient may require surgical intervention. Await recommendations. Diabetes mellitus type 2insulin-dependent: Continue Accu-Cheks and sliding scale. Patient takes insulin at homeinsulin 70/30 40 units every bedtime and 60 units every a.m. along with Metformin. Hypertension: Provide IV medication as the patient is n.p.o. Patient takes carvedilol 6.25 mg 1 pill twice daily and Lasix 40 mg daily at home. Hyperlipidemia: Hold medication at this time. Patient takes pravastatin 80 mg daily. Obstructive sleep apnea: Continue CPAP at night. GERD: Continue IV Protonix Diabetic neuropathy: Patient takes gabapentin 300 mg 3 times a day at home. Fatty liver: We will provide education. Patient may benefit with GI evaluation as an outpatient. Obesity, BMI 41: Continue lifestyle modification education. DVT PPX: SCD Code status: Full code Advanced care minutes: Home at discharge Time Spent Managing Pts Care (In Minutes): 55
[2021-02-08] MEDS: PIPER TAZO 3.375 GM in NA CHLORIDE 0.9% 100 ML IV SCH ×2 (08:28→16:42)
[2021-02-08] MEDS: PANTOPRAZOLE 40 MG INJ IVP SCH (08:29)
[2021-02-08] MEDS: INSULIN -REGULAR HUMAN 50 UNIT/0.5 ML ML SQ SCH ×4 (08:29→20:32)
[2021-02-08] MEDS: HYDRALAZINE HCL 20 MG/ML VIAL IV PRN ×2 (08:29→13:40)
[2021-02-08] MEDS ORDERED: PANTOPRAZOLE 40 MG INJ IVP SCH (09:00)
[2021-02-08] MEDS: HYDROMORPHONE HCL 0.5 MG/0.5 ML INJ IV PRN ×3 (09:22→22:39)
[2021-02-08] MEDS ORDERED: INFLUENZA VACCINE (for 6+ mo) 0.5 ML DOSE IMVAC ONE (12:00)
[2021-02-08] MEDS ORDERED: NA CHLORIDE 0.9% 1,000 ML ONE (14:21)
--- NOTE | 2021-02-08 14:23 | P.HP ---
Date of Service: 02/08/21 PC: This 66-year-old female presented to the emergency room with severe right upper quadrant abdominal pain for diagnosis and treatment. HPC: Patient is been experiencing right upper quadrant abdominal pain over the last 2 weeks. Pain has intensified last night and now is unable to get relief from it. PSHx: Achilles tendon surgery PMHx: Diabetes, hypertension, currently being treated for a pinched nerve in her back Social Hx: Allergic to ramipril Sys R: Denies any cough, wheeze, shortness of breath. No chest pain or palpitati ons. Has a hard time ambulating due to a pinched nerve and is currently in active rehab for it O/E: Awake alert vital signs are stable, moderate discomfort at the moment HEENT: Nonicteric Chest: Air entry equal bilaterally Abd: Mild right upper quadrant tenderness [place]: Intact Data: Distended gallbladder on work-up with stones Impression: Acute on chronic cholecystitis with cholelithiasis Plan: I will taken the operating room for laparoscopic possible open cholecystectomy with a cholangiogram. The risks of this procedure have been discussed. The possibility of bleeding, infection, injury to bile ducts blood vessels and intestines were described. The possible need for an open and/or further surgeries and procedures was discussed. She understands and wants us to proceed.
[2021-02-08] MEDS ORDERED: BUPIVACAINE 0.5% PF 10 ML VIAL ONE (14:29)
[2021-02-08] MEDS ORDERED: SUCCINYLCHOLINE 20 MG/ML (10 ML) IV ONE (14:51)
[2021-02-08] MEDS ORDERED: ROCURONIUM 50 MG/5 ML VIAL IV ONE (14:56)
[2021-02-08] MEDS ORDERED: propofoL 200 MG/20 ML VIAL IV ONE (14:56)
[2021-02-08] MEDS ORDERED: FENTANYL CITR 250 MCG/5 ML ONE (14:56)
[2021-02-08] MEDS ORDERED: MIDAZOLAM HCL 2 MG/2 ML INJ ONE (14:56)
[2021-02-08] MEDS ORDERED: GLYCOPYRROLATE 0.2 MG/ML SYR ONE (16:26)
[2021-02-08] MEDS ORDERED: NEOSTIGMINE 1 MG/ML -5 ML ONE (16:27)
[2021-02-08] MEDS ORDERED: dexAMETHasone 4 MG/ML VIAL ONE (16:32)
[2021-02-08] MEDS ORDERED: ONDANSETRON 4 MG/2 ML VIAL ONE (16:32)
--- NOTE | 2021-02-08 17:06 | P.OP ---
Preoperative diagnosis: Chronic cholecystitis with cholelithiasis Postoperative diagnosis: The same Primary procedure: Laparoscopic cholecystectomy Secondary procedure: Cholangiogram Other procedure(s): Tap block Anesthesia: General Estimated blood loss: Less than 10 cc Specimen: 1 gallbladder and contents Operative Technique: The patient brought the operating room placed supine on the table. After the induction of adequate general endotracheal anesthesia, there the abdomen was prepped with a DuraPrep solution, and she was draped in the usual aseptic ma nner. A subumbilical incision was made. This was brought down through the skin and subcutaneous tissue. The Visiport was now used to enter the peritoneal cavity and created pneumoperitoneum to approximately 12 mmHg. Under direct vision a 5 mm trocar was placed in the upper midline, and 2 other 5 mm trochars on the right lateral side of the abdomen. The patient was then placed in reverse Trendelenburg. The bed was then rolled to the left. We could visualize the right upper quadrant. We could see there was a distended gallbladder. It was necessary to aspirate the contents of this as we could not place a grasper on the fundus. Having done this a grasper was now applied. Another grasper was placed on by Busby's pouch. There was noted to be considerable dense serosal adhesions in this area. These were gently dissected off using blunt and sharp dissection as well as selective electrocautery. At this point we were able to identify the cystic duct and artery. These were isolated. Having obtained the critical view a clip was placed on the cystic artery which was then divided. Attention was turned back towards the cystic duct. A clip was placed between the gallbladder and the cystic duct. The cholangiogram was now introduced into the peritoneal cavity. This was done through a separate stab wound incision in the upper midline. The catheter was placed into the cystic duct after making a small opening with the laparoscopic Metzenbaum scissors. Our cholangiogram demonstrated good flow of contrast into the duodenum. No filling defects were noted. The catheter was then removed. Clips were placed on the distal portion of the cystic duct which was now fully transected. The gallbladder was now dissected free from the liver bed, placed into an Endo Catch, and brought out through the umbilical trocar site. At this point the umbilical trocar site was approximated using the Endo Close and an absorbable suture. A tap block was now performed using 0.25% Marcaine. This was done on the right side of the abdomen as well as the left. The pneumoperitoneum was now collapsed after removing the trochars, and the suture tied. At the end of the procedure lakes[place] were applied to the skin. She was in a stable condition was sent to the recovery room. Needle sponge and instrument count were correct. Complications: None Transferred to: Recovery Room Condition: Good
[2021-02-08] MEDS ORDERED: METOPROLOL TARTRATE 5 MG/5 ML INJ IV STA (17:53)
[2021-02-08] MEDS: carvediloL 12.5 MG TAB PO SCH (20:33)
--- NOTE | 2021-02-08 22:57 | RAD REPORT ---
EXAM DESCRIPTION: CT - Abdomen Pelvis W Contrast - 02/08/2021 4:19 am CLINICAL HISTORY: 66 years Female ABD PAIN TECHNIQUE: Contiguous axial images obtained through the abdomen and pelvis following intravenous con trast administration. Coronal and sagittal reformatted images provided. This CT exam was performed according to our departmental dose-optimization program, which includes on e or more of the following dose reduction techniques: automated exposure control, adjustment of the m A and/or kV according to patient size, and/or use of iterative reconstruction technique. COMPARISON: 07/18/2019 FINDINGS: Again seen is mild cardiomegaly. The lung bases are clear. Also again seen is steatosis of the liver, which is enlarged without focal lesion. Borderline splenom egaly. Stable gallbladder distention without inflammation or biliary dilatation. Stable fatty replacement of the pancreas without inflammation. The adrenal glands, kidneys, uterus, ovaries, and urinary bladder are normal. There is no bowel inflammation, obstruction, free intraperitoneal air, or ascites. The appendix is no rmal. Chronic degenerative changes in the spine without acute fracture or aggressive osseous lesion. IMPRESSION: No new abdominal or pelvic abnormalities. Again seen is mild cardiomegaly, steatosis of the liver with hepatomegaly, borderline splenomegaly, a nd stable gallbladder distention. If there is right upper quadrant pain, ultrasound recommended. Electronically signed by: Esthela Wilson MD 02/07/2021 11:08 PM CREW MESS ATTENDANT Due to temporary technical issues with the PACS/Fluency reporting system, reports are being signed by the in house radiologists without review as a courtesy to insure prompt reporting. The interpreting radiologist is fully responsible for the content of the report.
--- NOTE | 2021-02-08 22:58 | RAD REPORT ---
EXAM DESCRIPTION: US - Abdomen Exam Limited - 02/08/2021 12:38 am CLINICAL HISTORY: 66 years, Female, ABD PAIN COMPARISON: CT scan of the abdomen and pelvis performed earlier. TECHNIQUE: Utilizing a curved array transducer, real-time ultrasound evaluation of the abdominal vis cera was performed. Color Doppler imaging was used to assess vascular flow. FINDINGS: The liver demonstrate increased echogenicity. No focal areas of increased or decreased e chogenicity was seen. The gallbladder demonstrate to be distended measuring 10.7 x 4.2 cm. There is a tiny echogenic struct ure within the gallbladder wall measuring 6.4 mm perhaps corresponding to a gallbladder polyp and/or cholesterol crystal. Minimal layering high density material within the dependent portion correspondin g to gravel/tiny calculi. There is pericholecystic fluid. No definitive wall thickening. The common bile duct measures 5.3 mm. No intra or extrahepatic biliary duct dilatation was identified. There is no evidence for significant free fluid within the upper abdomen. IMPRESSION: DISTENDED GALLBLADDER WITH CHOLELITHIASIS. PERICHOLECYSTIC FLUID. IF CONCERN FURTHER SALVADOR LUATION WITH HIDA SCAN COULD BE OF ASSISTANCE. Electronically signed by: Elmer Sweeney MD 02/08/2021 12:22 AM FOOD SAFETY OFFICER Due to temporary technical issues with the PACS/Fluency reporting system, reports are being signed by the in house radiologists without review as a courtesy to insure prompt reporting. The interpreting radiologist is fully responsible for the content of the report.
[2021-02-09] MEDS: NA CHLORIDE 0.9% 1,000 ML IV SCH (03:05)
[2021-02-09] MEDS: carvediloL 12.5 MG TAB PO SCH (05:12)
--- NOTE | 2021-02-09 05:48 | P.PN ---
Subjective Date of Service: 02/09/21 Primary Care Provider: Dr. Ross-out of town Chief Complaint: Abdominal pain Subjective: Other (Patient doing well postoperatively) Physical Examination - Vital Signs Temperature: 97.8 F Blood Pressure: 193/77 Pulse: 86 Respirations: 16 Pulse Ox (%): 97 - Studies Laboratory Data (last 24 hrs) 02/08/21 05:08: Sodium 139, Potassium 4.0, BUN 8, Creatinine 0.86, Glucose 178 H, Total Bilirubin 0.9, AST 14 L, ALT 24, Alkaline Phosphatase 89 Assessment & Plan Discharge Plan: Home Plan to discharge in: 24 Hours Physician Review Additional Text: COVID: negative ABUS: Liver demonstrates increased echogencity. No focal areas of increased or decreased echogenicity was seen. Gallbladder demonstrate to be distended measuring 10.7 x 4.2 cm. There is a tiny echogenicity structure within the gallbladder wall measuring 6.4 mm perhaps corresponding to a gallbladder polyp and/or cholesterol crystal. Minimal layering high density material within the dependent portion corresponding to gravel/tiny calculi. There is pericholecystic fluid. No definitive wall thickening. The common bile duct measuring 5.3 mm. No intra- or intrahepatic biliary duct dilatation was identified. There is no evidence of significant free fluid within the upper abdomen. Impression Distended gallbladder with cholelithiasis. Pericholecystic fluid. CT scan: Mild cardiomegaly. Lungs clear. Fatty liver noted. Borderline splenomegaly. Stable gallbladder distention without inflammation or biliary dilation. Stable fatty replacement of the pancreas without inflammation. Adrenal glands, kidneys, uterus, ovaries and urinary bladder are normal. No bowel inflammation, obstruction, free intraperitoneal air or ascites. Appendix is normal. Chronic degenerative changes in the spine without acute fracture or aggressive osseous lesion. Impression No new abdominal or pelvic abnormalities. Mild cardiomegaly, Steatosis of the liver with hepatomegaly, borderline splenomegaly and stable gallbladder distention. Surgery: Date: 02/08/21 17:02 Preoperative diagnosis: Chronic cholecystitis with cholelithiasis Postoperative diagnosis: The same Primary procedure: Laparoscopic cholecystectomy Secondary procedure: Cholangiogram Other procedure(s): Tap block Anesthesia: General Estimated blood loss: Less than 10 cc Specimen: 1 gallbladder and contents Physical Exam: General: Alert, In no apparent distress, Oriented x3 HEENT: Atraumatic, PERRLA, Mucous membr. moist/pink, EOMI, Sclerae nonicteric Neck: Supple, 2+ carotid pulse no bruit, No LAD, Without JVD or thyroid abnormality Respiratory: Clear to auscultation bilaterally, Normal air movement Cardiovascular: Regular rate/rhythm, Normal S1 S2 Gastrointestinal: Pain to the right upper quadrant noted. Pain appears improved. Musculoskeletal: No tenderness Integumentary: No rashes Neurological: Normal gait, Normal speech, Normal tone, Normal affect Lymphatics: No axilla or inguinal lymphadenopathy Laboratory Data (last 24 hrs) Impression: Epigastric pain with ultrasound findings significant for distended gallbladder with pericholecystic fluid secondary to acute cholecystitis with cholelithiasis status post laparoscopic cholecystectomy with intraoperative cholangiogram Diabetes mellitus type 2insulin-dependent Hypertension Hyperlipidemia Obstructive sleep apnea GERD Diabetic neuropathy Fatty liver Obesity, BMI 41 Plan: Epigastric pain with ultrasound findings significant for distended gallbladder with pericholecystic fluid secondary to acute cholecystitis with cholelithiasis status post laparoscopic cholecystectomy with intraoperative cholangiogram: Patient doing well postoperatively. Patient to start diet this morning. Continue with medication for pain. Encourage ambulation. Will decrease IV fluids. Anticipate likely discharge today. patient medically cleared for discharge. Will make adjustments to her medication for blood pressure. Diabetes mellitus type 2insulin-dependent: Continue Accu-Cheks and sliding scale. Restart Metformin at 1000 mg 1 pill twice daily. Will provide basal insulin 10 units subcu twice daily in the hospital today. Patient takes insulin at homeinsulin 70/30 40 units every bedtime and 60 units every a.m. along with Metformin. Hypertension: Carvedilol increased to 12.5 mg 1 pill twice daily and additional medication Norvasc 5 mg daily added for better blood pressure control. Restart Lasix 40 mg daily with potassium supplementation as well. Recommend to maintain blood pressure less 130/80. If blood pressure remains above 140/90 additional changes to her medication may be required. This can be done as an outpatient. Hyperlipidemia: Restart pravastatin 80 mg daily. Obstructive sleep apnea: Continue CPAP at night. GERD: Continue Protonix 40 mg daily Diabetic neuropathy: Restart gabapentin 300 mg 3 times a day Fatty liver: We will provide education. Patient may benefit with GI evaluation as an outpatient. Obesity, BMI 41: Continue lifestyle modification education. DVT PPX: SCD Code status: Full code Advanced care [id number] minutes: Home at discharge Time Spent Managing Pts Care (In Minutes): 55
[2021-02-09 05:55] LABS: Absolute Lymphocytes (CBC) 1.2 K/uL (0.7-4.9); Basophils % 0.4 % (0-1.3); Hematocrit 43.6 % (36.0-45.0); Lymphocytes % 11.8 % (15.3-44.8); MPV 6.4 fL (7.6-11.3); RBC Red Blood Cell Count 4.75 M/uL (3.86-4.86)
[2021-02-09 06:19] LABS: Bilirubin Total 0.9 mg/dL (0.2-1.0); Potassium 3.9 mmol/L (3.5-5.1); Protein, Total 6.9 g/dL (6.4-8.2)
[2021-02-09] MEDS: HYDRALAZINE HCL 20 MG/ML VIAL IV PRN (06:46)
[2021-02-09] MEDS ORDERED: NA CHLORIDE 0.9% 1,000 ML IV SCH (08:06)
[2021-02-09] MEDS: INSULIN -REGULAR HUMAN 50 UNIT/0.5 ML ML SQ SCH ×2 (08:27→12:27)
[2021-02-09] MEDS: PANTOPRAZOLE 40 MG INJ IVP SCH (08:28)
[2021-02-09] MEDS: GABAPENTIN 300 MG CAP PO SCH ×2 (08:34→13:52)
[2021-02-09] MEDS ORDERED: POTASSIUM CL SA 10 MEQ TAB PO ONE (09:00)
[2021-02-09] MEDS ORDERED: FUROSEMIDE 40 MG TABLET PO SCH (09:00)
[2021-02-09] MEDS ORDERED: ATORVASTATIN 10 MG TAB PO SCH (09:00)
[2021-02-09] MEDS ORDERED: INSULIN GLARGINE 100 UNIT/ML SQ SCH (09:00)
[2021-02-09] MEDS ORDERED: METFORMIN HCL 500 MG TAB PO SCH (09:00)
[2021-02-09] MEDS ORDERED: AMLODIPINE 5 MG TAB PO SCH (09:00)
[2021-02-09 10:01] VITALS: O2SAT 99
[2021-02-09 13:10] VITALS: BP 137/62; TEMP 97.7
== END 2021-02-09 15:00 | disposition home or self-care (01) | DRG 418 ==
LOC: ER 20:25 → ERHOLD 02-08 01:14 → 2ND 02-08 03:44 → OBSVTOIN 02-08 19:49
PROVIDERS: ADMIT Surgery; ATTEND Surgery
PROC: BF121ZZ Fluoroscopy of Gallbladder using Low Osmolar Contrast (ICD-10-PCS; 2021-02-08)
PROC: 0FT44ZZ Resection of Gallbladder, Percutaneous Endoscopic Approach (ICD-10-PCS; principal; 2021-02-08 14:30)
DX: K80.12 Calculus of gallbladder with acute and chronic cholecystitis without obstruction (principal); Z68.41 Body mass index [BMI] 40.0-44.9, adult; K82.8 Other specified diseases of gallbladder; E66.9 Obesity, unspecified; I10 Essential (primary) hypertension; G47.33 Obstructive sleep apnea (adult) (pediatric); K21.9 Gastro-esophageal reflux disease without esophagitis; K76.0 Fatty (change of) liver, not elsewhere classified; E11.40 Type 2 diabetes mellitus with diabetic neuropathy, unspecified; E78.5 Hyperlipidemia, unspecified; Z79.4 Long term (current) use of insulin; Z79.899 Other long term (current) drug therapy; Z98.51 Tubal ligation status; Z88.8 Allergy status to other drugs, medicaments and biological substances; Z20.822 Contact with and (suspected) exposure to COVID-19
CPT/HCPCS: 36415; 74177; 74300; 76705; 80048; 80053; 80076; 82565; 82947; 83690; 85025; 88304; 99285; C9113; G0378; J0330; J0360; J1100; J1170; J2250; J2270; J2405; J2543; J2704; J2710; J3010; J7030; Q9967; U0003

== ENCOUNTER 2022-06-13 18:23 | Emergency (ER) | payer OTHER, MEDICARE ==
--- OUTSIDE RECORDS SUMMARY | 2022-06-13 18:25 | XMS REPORT | Continuity of Care Document ---
:1955 Author Organization [facility] t Address [address] [place] [address] Care Team Providers Name Role Phone Sadie Attending Clinician Unavailable Ronen Landon Attending Clinician [phone] Jodi Attending Clinician Unavailable Sadie Admitting Clinician Unavailable Jodi Admitting Clinician Unavailable Payers Payer Name Policy Type Policy Number Effective Date Expiration Date S edel [place]: [id number] 2019 [employer] SOLUTIONS 00:00:00 [facility] - [id number] 2021 OPTIONS 00:00:00 [facility] [id number] 2021 OPTIONS (MEDICARE 00:00:00 SUPPLEMENT) Problems This patient has no known problems. Allergies, Adverse Reactions, Alerts Allergy Allergy Status Severity Reaction(s) Onset Inactive Treating Comm ents Source Name Type Date Date Clinician Altace Allergy Active [facility] Urology e Social History Smoking Status Start Date Stop Date Source Never Smoker [facility] [place] [facility] Medications Ordered Filled Start Stop Current Ordering Indication Dosage Frequency Signature Comments Components Source Medication Medication Date Date Medication? Clinician (SIG) Name Name amlodipine amlodipine No amlodipine [place] 5 mg tablet 5 mg tablet 6-30 5 mg M etro TAKE 1 TAKE 1 00:00: tablet Urology TABLET BY TABLET BY 00 TAKE 1 MOUTH DAILY MOUTH DAILY TABLET BY FOR FOR MOUTH HYPERTENSIO HYPERTENSIO DAILY FOR N N HYPERTENSI ON BD Kyra 2nd BD Kyra 2nd No BD Kyra [place] Gen Pen Gen Pen 2nd Gen [facility] Needle 32 Needle 32 Pen Needle Urology gauge x gauge x 32 gauge x " USE " USE " USE DIRECTED DIRECTED TWICE DAILY TWICE DAILY DIRECTED TWICE DAILY carvedilol carvedilol No carvedilol [place] 12.5 mg 12.5 mg 12.5 mg [facility] tablet TAKE tablet TAKE tablet Urology 1 TABLET BY 1 TABLET BY TAKE 1 MOUTH TWICE MOUTH TWICE TABLET BY DAILY AT 6 DAILY AT 6 MOUTH AM AND AT 6 AM AND AT 6 TWICE PM FOR HIGH PM FOR HIGH DAILY AT 6 BLOOD BLOOD AM AND AT PRESSURE PRESSURE 6 PM FOR HIGH BLOOD PRESSURE furosemide furosemide No furosemide [place] 40 mg 40 mg 40 mg [facility] tablet TAKE tablet TAKE tablet Urology 1 TABLET BY 1 TABLET BY TAKE 1 MOUTH EVERY MOUTH EVERY TABLET BY DAY DAY MOUTH EVERY DAY gabapentin gabapentin No gabapentin [place] 300 mg 300 mg 300 mg [facility] capsule capsule capsule Urolog y TAKE 1 TAKE 1 TAKE 1 CAPSULE BY CAPSULE BY CAPSULE BY MOUTH THREE MOUTH THREE MOUTH TIMES DAILY TIMES DAILY THREE TIMES DAILY metformin metformin No metformin [place] 1,000 mg 1,000 mg 1,000 mg Met ro tablet TAKE tablet TAKE tablet Urology 1 TABLET BY 1 TABLET BY TAKE 1 MOUTH TWICE MOUTH TWICE TABLET BY DAILY DAILY MOUTH TWICE DAILY mupirocin 2 mupirocin 2 No mupirocin [place] % topical % topical 2 % [facility] ointment ointment topical Urol ogy APPLY THIN APPLY THIN ointment LAYER LAYER APPLY THIN TOPICALLY TOPICALLY LAYER TO WOUND 2 TO WOUND 2 TOPICALLY TO 3 TIMES TO 3 TIMES TO WOUND 2 A DAY UNTIL A DAY UNTIL TO 3 TIMES HEALED HEALED A DAY UNTIL HEALED Novolog Mix Novolog Mix No Novolog [place] 70-30 70-30 Mix 70-30 [facility] FlexPen FlexPen FlexPen Urolog y U-100 U-100 U-100 Insulin 100 Insulin 100 Insulin unit/mL unit/mL 100 subcutaneou subcutaneou unit/mL s pen s pen subcutaneo INJECT 60 INJECT 60 us pen UNITS UNITS INJECT 60 SUBCUTANEOU SUBCUTANEOU UNITS S EVERY S EVERY SUBCUTANEO MORNING AND MORNING AND US EVERY INJECT 40 INJECT 40 MORNING UNITS UNITS AND INJECT SUBCUTANEOU SUBCUTANEOU 40 UNITS S EVERY S EVERY SUBCUTANEO EVENING 15 EVENING 15 US EVERY MINUTES MINUTES EVENING 15 BEFORE BEFORE MINUTES MEALS MEALS BEFORE MEALS pravastatin pravastatin No pravastati [place] 80 mg 80 mg n 80 mg [facility] tablet TAKE tablet TAKE tablet Urology 1 TABLET BY 1 TABLET BY TAKE 1 MOUTH DAILY MOUTH DAILY TABLET BY WITH THE WITH THE MOUTH EVENING EVENING DAILY WITH MEAL MEAL THE EVENING MEAL spironolact spironolact No spironolac [place] one 50 mg one 50 mg tone 50 mg [facility] tablet TAKE tablet TAKE tablet Urology 1 TABLET BY 1 TABLET BY TAKE 1 MOUTH DAILY MOUTH DAILY TABLET BY MOUTH DAILY Immunizations Ordered Immunization Filled Immunization Date Status Commen ts Source Name Name influenza, influenza, 2020-09-16 Completed [facility] injectable, injectable, 00:00:00 Urology quadrivalent quadrivalent Vital Signs Vital Name Observation Time Observation Value Comments Source BP Diastolic 2021-08-15 00:00:00 72 mm[Hg] [facility] Urology Height 2021-08-15 00:00:00 70 [in_i] [facility] Urology BMI (Body Mass 2021-08-15 00:00:00 40.7 kg/m2 Robin Claudio Index) Urology BP Systolic 2021-08-15 00:00:00 130 mm[Hg] [facility] Urolog Body Weight 2021-08-15 00:00:00 284 [lb_av] [facility] Urology Procedures Procedure Date / Time Performing Clinician Source Performed CT, abdomen + pelvis, w/wo 2021-08-15 00:00:00 H dorita Claudio contrast Urology Cholecystectomy 2020-02-17 00:00:00 Floyd briones [facility] Colonoscopy 2015-02-16 00:00:00 Floyd briones Urology Encounters Start End Encounter Admission Attending Care Care Encounter Source Date/Time Date/Time Type Type Clinicians Facility Department ID 2021-09-18 [facility] [id number] [facility] 09:00:02 [facility] 2021-06-13 Out[facility] [id number] Common 10:39:05 [id number] [facility] 2021-08-26 2021-08-26 Outpatient [id number] [place] 10:09:00 10:09:00 [id number] [facility] 2021-08-15 2021-08-15 Outpatient [facility] U [id number] [place] 03:26:00 03:26:00 [id number] [facility] 2021-08-15 2021-08-15 Outpatient Barbi, [id number] 00:00:00 00:00:00 Ronen [id number] 2021-08-15 2021-08-15 Ronen [facility] [place] - [id number] [place] 00:00:00 00:00:00 MD Barbi: Floyd [facility] o [id number] [facility] [address] [place] [address] , Ph. 2021-08-14 2021-08-14 Outpatient [facility] [id number] [place] 07:17:00 07:17:00 [facility] 2021-07-30 2021-07-30 Outpatient [facility] [id number] [place] 04:50:00 04:50:00 [id number] [facility] 2021-07-30 2021-07-30 Outpatient [facility] [id number] [place] 04:50:00 04:50:00 [facility] 2021-07-23 2021-07-23 Outpatient [facility] [id number] [place] 11:51:00 11:51:00 [id number] [facility] 2021-07-23 2021-07-23 [id number] [facility] 02:08:00 02:08:00 _[facility]oco [id number] Medica l Results This patient has no known results.
[2022-06-13 20:13] LABS: Absolute Lymphocytes (CBC) 2.5 K/uL (0.7-4.9); Hematocrit 43.7 % (36.0-45.0); Lymphocytes % 24.7 % (15.3-44.8); MCV 88.7 fL (80-100); MPV 6.5 fL (7.6-11.3); RBC Red Blood Cell Count 4.93 M/uL (3.86-4.86)
[2022-06-13 20:14] LABS: Protime INR 0.97
[2022-06-13] MEDS ORDERED: AMLODIPINE 5 MG TAB ONE (20:21)
[2022-06-13 20:32] LABS: Albumin 3.6 g/dL (3.4-5.0); Bilirubin Direct 0.1 mg/dL (0-0.2); Bilirubin Total 0.6 mg/dL (0.2-1.0); Protein, Total 7.7 g/dL (6.4-8.2); Troponin High Sensitivity 9.8 pg/mL (<58.9)
--- NOTE | 2022-06-13 20:33 | RAD REPORT ---
EXAM DESCRIPTION: CT - Head Brain Wo Cont - 06/13/2022 8:11 pm CLINICAL HISTORY: Headache/hypertension urgency COMPARISON: none TECHNIQUE: Computed axial tomography of the head was obtained. IV contrast was not requested. All CT scans are performed using dose optimization technique as appropriate and may include automated exposure control or mA/KV adjustment according to patient size. FINDINGS: An intracranial bleed is not seen The ventricles are normal in caliber No significant hypodense areas within the brain visualized No extra-axial fluid collection is noted. Empty sella turcica. Mild cerebellar tonsillar ectopia Fluid within the sinuses/ mastoids is not seen IMPRESSION: No acute intracranial abnormality is seen If patient's symptoms persist MRI of the brain would be recommended
[2022-06-13 20:34] LABS: Magnesium 1.8 mg/dL (1.6-2.4); Potassium 4.2 mEq/L (3.5-5.1)
--- NOTE | 2022-06-13 20:36 | RAD REPORT ---
EXAM DESCRIPTION: Susy Single View06/13/2022 8:28 pm CLINICAL HISTORY: Swelling, fatigue/malaise COMPARISON: 2020 FINDINGS: The lungs appear clear of acute infiltrate. The heart is mildly to moderately enlarged IMPRESSION: No acute abnormalities displayed
--- NOTE | 2022-06-13 21:46 | RAD REPORT ---
EXAM DESCRIPTION: Adriana Angio06/13/2022 9:34 pm CLINICAL HISTORY: Syncope/headache COMPARISON: None TECHNIQUE: 50 cc Isovue 370 was administered intravenously. 3D MIP reconstruction performed All CT scans are performed using dose optimization technique as appropriate and may include automated exposure control or mA/KV adjustment according to patient size. FINDINGS: A bovine aorta Subclavian and brachiocephalic artery is unremarkable Common, internal and external carotid arteries bilaterally demonstrate minimal to no plaque. Vertebral arteries unremarkable No dissection/significant stenosis seen IMPRESSION: No significant abnormality is displayed NASCET criteria used. Mild 0-49% stenosis Moderate 50-69% stenosis Severe 70-99% stenosis
--- NOTE | 2022-06-13 21:49 | RAD REPORT ---
EXAM DESCRIPTION: CTHead angio06/13/2022 9:34 pm CLINICAL HISTORY: Syncope/headache COMPARISON: None TECHNIQUE: 100 cc Isovue [address] angiogram of the head was obtained. 3D MIPS reconstruction performed. All CT scans are performed using dose optimization technique as appropriate and may include automated exposure control or mA/KV adjustment according to patient size. FINDINGS: The basilar, internal carotid, anterior cerebral, middle cerebral and posterior cerebral a rteries do not demonstrate a significant abnormality origin posterior cerebral arteries An aneurysm is not seen A significant stenosis is not noted. IMPRESSION: No acute abnormality is displayed
--- NOTE | 2022-06-13 22:05 | EDPHYS ---
Physician Documentation [facility] Name: Deb Lozada Age: 67 yrs Sex: Female : 1955 Arrival Date: 06/13/2022 Time: 18:23 Bed 6 Private MD: Terell Ross V ED Physician Clayton Davidson HPI: 06/13 19:29 This 67 yrs old Female presents to ER via Ambulatory with complaints of Doesn't Feel snw Right, Headache, Fatigue. 19:29 Onset: The symptoms/episode began/occurred acutely. Associated signs and symptoms: snw Pertinent positives: The patient does not have any pertinent positive signs or symptoms associated with pediatric illness. Modifying factors: The patient symptoms are alleviated by nothing, the patient symptoms are aggravated by movement. It is unknown whether or not the patient has had similar symptoms in the past. It is unknown whether or not the patient has recently seen a physician. pt takes spironolactone, furosemide, metformin, carvedilol, and amlodipine. Historical: - Allergies: 18:42 "blood pressure medicine that starts with A"; cm9 18:42 altase; cm9 - PMHx: 18:42 Diabetes - NIDDM; HLD; Hypertension; cm9 - Immunization history:: Client reports having NOT received the Covid vaccine. - Social history:: Smoking status: Patient/guardian denies using tobacco, Patient/guardian denies using alcohol, street drugs, IV drugs. ROS: 19:27 Eyes: Negative for injury, pain, redness, and discharge, ENT: Negative for injury, snw pain, and discharge, Neck: Negative for injury, pain, and swelling, Cardiovascular: Negative for chest pain, palpitations, and edema, Respiratory: Negative for shortness of breath, cough, wheezing, and pleuritic chest pain. 19:27 Back: Negative for injury and pain, : Negative for injury, bleeding, discharge, and swelling, MS/Extremity: Negative for injury and deformity, Skin: Negative for injury, rash, and discoloration, Psych: Negative for depression, anxiety, suicide ideation, homicidal ideation, and hallucinations. 19:27 Constitutional: Positive for malaise. 19:27 Abdomen/GI: Positive for nausea. 19:27 Neuro: Positive for dizziness, tingling. Exam: 19:25 Constitutional: This is a well developed, well nourished patient who is awake, alert, snw and in no acute distress. Head/Face: Normocephalic, atraumatic. Eyes: Pupils equal round and reactive to light, extra-ocular motions intact. Lids and lashes normal. Conjunctiva and sclera are non-icteric and not injected. Cornea within normal limits. Periorbital areas with no swelling, redness, or edema. ENT: Nares patent. No nasal discharge, no septal abnormalities noted. Tympanic membranes are normal and external auditory canals are clear. Oropharynx with no redness, swelling, or masses, exudates, or evidence of obstruction, uvula midline. Mucous membranes moist. Neck: Trachea midline, no thyromegaly or masses palpated, and no cervical lymphadenopathy. Supple, full range of motion without nuchal rigidity, or vertebral point tenderness. No Meningismus. Chest/axilla: Normal chest wall appearance and motion. Nontender with no deformity. No lesions are appreciated. Cardiovascular: Regular rate and rhythm with a normal S1 and S2. No gallops, murmurs, or rubs. Normal PMI, no JVD. No pulse deficits. Respiratory: Lungs have equal breath sounds bilaterally, clear to auscultation and percussion. No rales, rhonchi or wheezes noted. No increased work of breathing, no retractions or nasal flaring. Abdomen/GI: Soft, non-tender, with normal bowel sounds. No distension or tympany. No guarding or rebound. No evidence of tenderness throughout. Back: No spinal tenderness. No costovertebral tenderness. Full range of motion. Skin: Warm, dry with normal turgor. Normal color with no rashes, no lesions, and no evidence of cellulitis. MS/ Extremity: Pulses equal, no cyanosis. Neurovascular intact. Full, normal range of motion. Psych: Awake, alert, with orientation to person, place and time. Behavior, mood, and affect are within normal limits. 19:25 Neuro: Orientation: is normal, Mentation: appropriate for stated age, Sensation: mild paresthesias, Gait: is steady, at a normal pace. Vital Signs: 18:37 BP 217 / 100; Pulse 89; Resp 20; Temp 97.5; Pulse Ox 96% on R/A; Weight 130.18 kg; cm9 Height 5 ft. 10 in. ; Pain 1/10; 20:02 BP 171 / 72; Pulse 73; Resp 14; Pulse Ox 98% on R/A; jb4 20:30 BP 160 / 72; Pulse 70; Resp 14; Pulse Ox 99% on R/A; jb4 21:45 BP 164 / 68; Pulse 72; Resp 16; Pulse Ox 99% on R/A; jb4 18:37 Body Mass Index 41.18 (130.18 kg, 177.8 cm) cm9 18:37 Pain Scale: Adult cm9 Bora Coma Score: 19:25 Eye Response: spontaneous(4). Motor Response: obeys commands(6). Verbal Response: snw oriented(5). Total: 15. MDM: 19:16 Patient medically screened. snw 23:08 Differential diagnosis: CVA, TIA, anxiety reaction, vagal episode, near syncope. Data jmm reviewed: vital signs, nurses notes, lab test result(s), radiologic studies, CT scan. Consideration of Admission/Observation. Management of patient was discussed with the following: Chemistry Quality Control Technician: Dr. Mcfarland. Refusal of service: The patient/guardian displays adequate decision making capability and despite a detailed discussion of alternatives, benefits, risks, and consequences refuses: Admission to the hospital for further work-up and treatment. ED course: I discussed with the patient the HPI around 5. Patient stated that around 5 she developed tingling beginning in both legs that ascended up the legs along with numbness to her face and neck. Patient stated she also developed a headache which is atypical of her typical headaches. Denied any unilateral weakness or slurred speech. Daughter stated that she appeared confused. Symptoms had completely resolved shortly after the patient was triaged. Patient still has a mild headache. I discussed the patient's case along with CT results with Dr. Mcfarland. Stated that this could possibly be a TIA. Discussed pros and cons of admission. Recommended putting the patient on Plavix and aspirin. I discussed the patient's case with Johnathan Trivedi whom also recommended atorvastatin. Patient was given the option of admission for observation. She elected outpatient care.. 06/13 19:25 Order name: Basic Metabolic Panel; Complete Time: 20:36 snw 06/13 19:25 Order name: CBC with Diff; Complete Time: 20:22 snw 06/13 19:25 Order name: LFT's; Complete Time: 20:36 snw 06/13 19:25 Order name: Magnesium; Complete Time: 20:36 snw 06/13 19:25 Order name: NT PRO-BNP; Complete Time: 20:36 snw 06/13 19:25 Order name: PT-INR; Complete Time: 20:15 snw 06/13 19:25 Order name: Troponin HS; Complete Time: 20:36 w 06/13 19:25 Order name: XRAY Chest (1 view); Complete Time: 20:38 w 06/13 19:25 Order name: CT Head Brain wo Cont; Complete Time: 20:36 snw 06/13 21:04 Order name: CT Head Angio; Complete Time: 21:51 [facility] 06/13 21:04 Order name: CT Neck Angio [facility] 06/13 19:25 Order name: EKG; Complete Time: 19:27 w 06/13 19:25 Order name: Cardiac monitoring; Complete Time: 20:01 [facility] 06/13 19:25 Order name: EKG - Nurse/Tech; Complete Time: 20:01 w 06/13 19:25 Order name: IV Saline Lock; Complete Time: 20:01 w 06/13 19:25 Order name: Labs collected and sent; Complete Time: 20:01 w 06/13 19:25 Order name: O2 Per Protocol; Complete Time: 20:01 w 06/13 19:25 Order name: O2 Sat Monitoring; Complete Time: 20:01 snw EC:47 Rate is 77 beats/min. Rhythm is regular. Left axis deviation noted. DC interval is snw normal. QRS interval is normal. Clinical impression: NSR w/ Non-specific ST/T Changes. Administered Medications: 20:15 Drug: amLODIPine PO 5 mg Route: PO; jb4 22:22 Follow up: Response: No adverse reaction; Marked relief of symptoms; Blood pressure is jb4 lowered Disposition: 19:29 Co-signature as Attending Physician, Clayton JOHNSON was immediately available on-site ms3 in the Emergency Department for consultation in the care of the patient. Disposition Summary: 06/13/22 22:05 Discharge Ordered Location: Home [facility] Condition: Stable [facility] Diagnosis - Headache jmm Followup: [facility] - With: Osmany Mcfarland MD - When: 2 - 3 days - Reason: Recheck today's complaints, Continuance of care, Re-evaluation by your physician Discharge Instructions: - Discharge Summary Sheet jm - General Headache Without Cause jmm - Paresthesia jm Forms: - Medication Reconciliation Form jm - Thank You Letter jmm - Antibiotic Education jmm - Prescription Opioid Use [facility] Prescriptions: - aspirin 81 mg Oral tablet, delayed release (enteric coated) - take 1 tablet by ORAL route daily; 30 tablet; Refills: 0, Product Selection [facility] Permitted - atorvastatin 40 mg Oral tablet - take 1 tablet by ORAL route once; 30 tablet; Refills: 0, Product Selection [facility] Permitted - Plavix 75 mg Oral Tablet - take 1 tablet by ORAL route once daily; 30 tablet; Refills: 0, Product [facility] Selection Permitted Signatures: Dispatcher [employer] EDLinda Cortez, MANAGER CODING-C MANAGER CODING-Csnw Primo Lynch PA PA jmm Bryson, James, ZEYNEP RN jb4 Clayton Davidson DO DO ms3 Julia Hair, RN RN cm9
--- NOTE | 2022-06-13 22:05 | ER ---
Nurse's Notes [facility] Name: Deb Lozada Age: 67 yrs Sex: Female : 1955 Arrival Date: 06/13/2022 Time: 18:23 Bed 6 Private MD: Terell Ross V Diagnosis: Headache Presentation: 06/13 18:37 Chief complaint: Patient states: Pt states that she fogginess, fatigue, and "not cm9 feeling well"; at 1730 this evening noted tingling feeling from feet to head subsided right away accompanied by headache that currently rates 1/10; pt verbalized forgot to take BP medication today and took at 5:30PM upon symptom onset. Coronavirus screen: Vaccine status: Patient reports receiving the 2nd dose of the covid vaccine. At this time, the client does not indicate any symptoms associated with coronavirus-19. Ebola Screen: No symptoms or risks identified at this time. Initial Sepsis Screen: Does the patient meet any 2 criteria? No. Patient's initial sepsis screen is negative. Does the patient have a suspected source of infection? No. Patient's initial sepsis screen is negative. Risk Assessment: Do you want to hurt yourself or someone else? Patient reports no desire to harm self or others. Onset of symptoms was June 13, 2022 at 18:42. 18:37 Method Of Arrival: Ambulatory 9 18:37 Acuity: CHAPARRITA 2 cm9 Triage Assessment: 18:42 Headache History: Denies prior headaches. General: Appears in no apparent distress. cm9 Behavior is calm, cooperative. Pain: Complains of pain in face Pain currently is 1 out of 10 on a pain scale. Pain began 2 hours ago. Also complains of inability to concentrate. Neuro: Level of Consciousness is awake, alert, obeys commands, Oriented to person, place, time, situation. Cardiovascular: Capillary refill < 3 seconds Patient's skin is warm and dry. Respiratory: Airway is patent Respiratory effort is even, unlabored, labored. Musculoskeletal: Range of motion: intact in all extremities. Historical: - Allergies: 18:42 "blood pressure medicine that starts with A"; cm9 18:42 altase; cm9 - PMHx: 18:42 Diabetes - NIDDM; HLD; Hypertension; cm9 - Immunization history:: Client reports having NOT received the Covid vaccine. - Social history:: Smoking status: Patient/guardian denies using tobacco, Patient/guardian denies using alcohol, street drugs, IV drugs. Screenin:00 [facility] ED Fall Risk Assessment (Adult) History of falling in the last 3 months, jb4 including since admission No falls in past 3 months (0 pts). Abuse screen: Denies threats or abuse. Nutritional screening: No deficits noted. Tuberculosis screening: No symptoms or risk factors identified. Assessment: 19:45 General: Appears in no apparent distress. comfortable, Behavior is calm, cooperative, jb4 appropriate for age. Pain: Complains of pain in headache Pain does not radiate. Pain currently is 1 out of 10 on a pain scale. Neuro: Level of Consciousness is awake, alert, obeys commands, Oriented to person, place, time, situation. Cardiovascular: Patient's skin is warm and dry. Respiratory: Airway is patent Respiratory effort is even, unlabored, Respiratory pattern is regular, symmetrical. GI: No signs and/or symptoms were reported involving the gastrointestinal system. : No signs and/or symptoms were reported regarding the genitourinary system. EENT: No signs and/or symptoms were reported regarding the EENT system. Derm: Skin is intact, Skin is pink, warm \\T\\ dry. Musculoskeletal: Circulation, motion, and sensation intact. Range of motion: intact in all extremities. 20:30 Reassessment: Patient appears in no apparent distress at this time. Patient and/or jb4 family updated on plan of care and expected duration. Pain level reassessed. Patient is alert, oriented x 3, equal unlabored respirations, skin warm/dry/pink. 21:45 Reassessment: Patient appears in no apparent distress at this time. Patient and/or jb4 family updated on plan of care and expected duration. Pain level reassessed. Patient is alert, oriented x 3, equal unlabored respirations, skin warm/dry/pink. 22:22 Reassessment: Patient appears in no apparent distress at this time. Patient and/or jb4 family updated on plan of care and expected duration. Pain level reassessed. Patient is alert, oriented x 3, equal unlabored respirations, skin warm/dry/pink. Vital Signs: 18:37 BP 217 / 100; Pulse 89; Resp 20; Temp 97.5; Pulse Ox 96% on R/A; Weight 130.18 kg; cm9 Height 5 ft. 10 in. ; Pain /; 20:02 BP 171 / 72; Pulse 73; Resp 14; Pulse Ox 98% on R/A; jb4 20:30 BP 160 / 72; Pulse 70; Resp 14; Pulse Ox 99% on R/A; jb4 21:45 BP 164 / 68; Pulse 72; Resp 16; Pulse Ox 99% on R/A; jb4 18:37 Body Mass Index 41.18 (130.18 kg, 177.8 cm) cm9 18:37 Pain Scale: Adult cm9 Almond Coma Score: 19:25 Eye Response: spontaneous(4). Motor Response: obeys commands(6). Verbal Response: snw oriented(5). Total: 15. ED Course: 18:28 Patient arrived in ED. mr 18:28 Terell Ross MD is Private Physician. mr 18:28 Linda Galindo FNP-C is PHCP. snw 18:28 Clayton Davidson DO is Attending Physician. snw 18:42 Triage completed. cm9 18:42 Arm band placed on left wrist. cm9 19:45 Inserted saline lock: 18 gauge in right antecubital area, using aseptic technique. jb4 Blood collected. 19:45 Initial lab(s) drawn, by ia, sent to lab. jb4 20:00 Patient has correct armband on for positive identification. Bed in low position. Call jb4 light in reach. Side rails up X 1. Client placed on continuous cardiac and pulse oximetry monitoring. NIBP monitoring applied. campus monitor on. 20:01 Basic Metabolic Panel Sent. jb4 20:02 CBC with Diff Sent. jb4 20:02 LFT's Sent. jb4 20:02 Magnesium Sent. jb4 20:02 NT PRO-BNP Sent. jb4 20:02 PT-INR Sent. jb4 20:02 Troponin HS Sent. jb4 20:13 PHCP role handed off by Linda Galindo FNP-C [facility] 20:13 Primo Lynch PA is PHCP. jmm 20:13 CT Head Brain wo Cont In Process Unspecified. EDMS 20:29 XRAY Chest (1 view) In Process Unspecified. EDMS 21:36 CT Head Angio In Process Unspecified. EDMS 21:36 CT Neck Angio In Process Unspecified. EDMS 21:46 Pato Monroe, RN is Primary Nurse. jb4 22:04 Osmany Mcfarland MD is Referral Physician. [facility] 22:24 No provider procedures requiring assistance completed. IV discontinued, intact, jb4 bleeding controlled, No redness/swelling at site. Pressure dressing applied. Administered Medications: 20:15 Drug: amLODIPine PO 5 mg Route: PO; jb4 22:22 Follow up: Response: No adverse reaction; Marked relief of symptoms; Blood pressure is jb4 lowered Medication: 21:45 VIS not applicable for this client. jb4 Outcome: 22:05 Discharge ordered by . jm 22:25 Discharged to home ambulatory, with family. jb4 22:25 Condition: stable 22:25 Discharge instructions given to patient, family, Instructed on discharge instructions, follow up and referral plans. medication usage, Demonstrated understanding of instructions, follow-up care, medications, Prescriptions given X 3. 22:25 Patient left the ED. jb4 Signatures: Dispatcher [employer] EDAR Linda Galindo, PEDIATRIC ALLERGIST-C PEDIATRIC ALLERGIST-Csnw Primo Lynch PA PA jmm RiveraMalorie mr Pato Monroe, RN RN jb4 Julia Hair, RN RN cm9
[2022-06-13 22:46] VITALS: TEMP 97.5
[2022-06-13 22:51] VITALS: O2SAT 99
[2022-06-13 22:52] VITALS: BP 164/68
--- NOTE | 2022-06-16 12:43 | EKG ---
Test Date: 2022-06-13 Test Time: 19:47:12 Blending Operator: ABHI MEASUREMENT RESULTS: Intervals: Rate: 77 [place]: 152 QRSD: 92 QT: 402 QTc: 454 Barton: P: 65 [place]: 152 QRS: -44 T: 55 INTERPRETIVE STATEMENTS: Normal sinus rhythm Left axis deviation Nonspecific T wave abnormality Abnormal ECG No previous ECG available for comparison Electronically Signed On 06-16-22 12:37:42 CDT by Harpreet Roland
== END 2022-06-13 22:25 | disposition home or self-care (01) ==
LOC: ER 18:23
DX: R51.9 Headache, unspecified (principal); R53.83 Other fatigue; R11.0 Nausea; I10 Essential (primary) hypertension; E11.9 Type 2 diabetes mellitus without complications; Z88.8 Allergy status to other drugs, medicaments and biological substances
CPT/HCPCS: 93005; 85025; 80048; 36415; 83735; 85610; 80076; 84484; 83880; 70450; 70496; 70498; 71045; Q9967; 99284

== ENCOUNTER 2023-12-25 18:55 | Emergency (ER) | payer OTHER, MEDICARE ==
--- OUTSIDE RECORDS SUMMARY | 2023-12-25 18:57 | XMS REPORT | Continuity of Care Document ---
Author Name Unknown Address [address] [facility] [facility] [address] [place] [id number] [facility] thconnect Address [address] [facility] [address] [place] [address] Care Team Providers Care Extension Edger Name Role Phone Barbi_Blaine Attending Clinician Unavailable Ronen Landon Attending Clinician [phone] CORI_[facility]_Cathmaria del carmen Attending Clinician Unavailab le Barbi_Blaine Admitting Clinician Unavailable YURIDIA_Cathey Admitting Clinician Unavailab le Payers Payer Name Policy Type Policy Number Effective Date Expirati on Date Source [place]ICARE [place]: [employer] [id number] 2019 00:00:00 [facility] - OPTIONS [id number] 2021 00:00:00 [employer] OPTIONS (MEDICARE SUPPLEMENT) [id number] 2021 00:00:00 Allergies, Adverse Reactions, Alerts Allergy Name Allergy Type Status Severity Reaction(s) Onset Date Inactive Date Treating Clinician Comments Source Altace Allergy to substanc e Active [facility] Social History Smoking Status Start Date Stop Date Source Never Smoker [facility] U rology Medications Ordered Medication Name Filled Medication Name Start Date Stop Date Current Medication? Ordering Clinician Indication Dosage Frequency Signature (SIG) Comments Components Source amlodipine 5 mg tablet TAKE 1 TABLET BY MOUTH DAILY FOR HYPERTENSIO N amlodipine 5 mg tablet TAKE 1 TABLET BY MOUTH DAILY FOR HYPERTENSIO N 08-15 00:00: 00 No amlodipine 5 mg tablet TAKE 1 TABLET BY MOUTH DAILY FOR HYPERTENSI ON [facility] BD Kyra 2nd Gen Pen Needle 32 gauge x 5/32" USE DIRECTED TWICE DAILY BD Kyra 2nd Gen Pen Needle 32 gauge x 5/32" USE DIRECTED TWICE DAILY No BD Kyra 2nd Gen Pen Needle 32 gauge x 5/32" USE DIRECTED TWICE DAILY [facility] carvedilol 12.5 mg tablet TAKE 1 TABLET BY MOUTH TWICE DAILY AT 6 AM AND AT 6 PM FOR HIGH BLOOD PRESSURE carvedilol 12.5 mg tablet TAKE 1 TABLET BY MOUTH TWICE DAILY AT 6 AM AND AT 6 PM FOR HIGH BLOOD PRESSURE No carvedilol 12.5 mg tablet TAKE 1 TABLET BY MOUTH TWICE DAILY AT 6 AM AND AT 6 PM FOR HIGH BLOOD PRESSURE [facility] furosemide 40 mg tablet TAKE 1 TABLET BY MOUTH EVERY DAY furosemide 40 mg tablet TAKE 1 TABLET BY MOUTH EVERY DAY No furosemide 40 mg tablet TAKE 1 TABLET BY MOUTH EVERY DAY [facility] gabapentin 300 mg capsule TAKE 1 CAPSULE BY MOUTH THREE TIMES DAILY gabapentin 300 mg capsule TAKE 1 CAPSULE BY MOUTH THREE TIMES DAILY No gabapentin 300 mg capsule TAKE 1 CAPSULE BY MOUTH THREE TIMES DAILY [facility] metformin 1,000 mg tablet TAKE 1 TABLET BY MOUTH TWICE DAILY metformin 1,000 mg tablet TAKE 1 TABLET BY MOUTH TWICE DAILY No metformin 1,000 mg tablet TAKE 1 TABLET BY MOUTH TWICE DAILY [facility] mupirocin 2 % topical ointment APPLY THIN LAYER TOPICALLY TO WOUND 2 TO 3 TIMES A DAY UNTIL HEALED mupirocin 2 % topical ointment APPLY THIN LAYER TOPICALLY TO WOUND 2 TO 3 TIMES A DAY UNTIL HEALED No mupirocin 2 % topical ointment APPLY THIN LAYER TOPICALLY TO WOUND 2 TO 3 TIMES A DAY UNTIL HEALED [facility] Novolog Mix 70-30 FlexPen U-100 Insulin 100 unit/mL subcutaneou s pen INJECT 60 UNITS SUBCUTANEOU S EVERY MORNING AND INJECT 40 UNITS SUBCUTANEOU S EVERY EVENING 15 MINUTES BEFORE MEALS Novolog Mix 70-30 FlexPen U-100 Insulin 100 unit/mL subcutaneou s pen INJECT 60 UNITS SUBCUTANEOU S EVERY MORNING AND INJECT 40 UNITS SUBCUTANEOU S EVERY EVENING 15 MINUTES BEFORE MEALS No Novolog Mix 70-30 FlexPen U-100 Insulin 100 unit/mL subcutaneo us pen INJECT 60 UNITS SUBCUTANEO US EVERY MORNING AND INJECT 40 UNITS SUBCUTANEO US EVERY EVENING 15 MINUTES BEFORE MEALS [facility] pravastatin 80 mg tablet TAKE 1 TABLET BY MOUTH DAILY WITH THE EVENING MEAL pravastatin 80 mg tablet TAKE 1 TABLET BY MOUTH DAILY WITH THE EVENING MEAL No pravastati n 80 mg tablet TAKE 1 TABLET BY MOUTH DAILY WITH THE EVENING MEAL [facility] spironolact one 50 mg tablet TAKE 1 TABLET BY MOUTH DAILY spironolact one 50 mg tablet TAKE 1 TABLET BY MOUTH DAILY No spironolac tone 50 mg tablet TAKE 1 TABLET BY MOUTH DAILY [facility] Vital Signs Vital Name Observation Time Observation Value Comments Jayshree layne BP Diastolic 2021-08-15 00:00:00 72 mm[Hg] [facility] Height 2021-08-15 00:00:00 70 [in_i] Nancy [facility] BMI (Body Mass Index) 2021-08-15 00:00:00 40.7 kg/m2 [facility] BP Systolic 2021-08-15 00:00:00 130 mm[Hg] Miki ton [facility] Body Weight 2021-08-15 00:00:00 284 [lb_av] Pedro stojermaine [facility] Procedures Procedure Date / Time Performed Performing Clinician Source CT, abdomen + pelvis, w/wo contrast 2021-08-15 [facility] Cholecyst[facility] 2020-02-17 00:00:[address] [facility] Colonoscopy 2015-02-16 00:00:00 [facility] Encounters Start Date/Time End Date/Time Encounter Type Admission Type Attending Clinicians Care Facility Care Department Encounter ID Source 2021-09-18 09:00:02 Outpatient [facility] [id number] [facility] 2021-06-13 10:39:05 Outpatient [facility] [id number] [facility] 2021-08-26 10:09:00 2021-08-26 10:09:00 Outpatient Baum_L U [facility] [id number] [facility] 2021-08-15 03:26:00 2021-08-15 03:26:00 Outpatient Banery_L U [facility] [id number] [facility] 2021-08-15 00:00:00 2021-08-15 00:00:00 Outpatient Ronen Landon U [facility] [id number] 2021-08-15 00:00:00 2021-08-15 00:00:00 Ronen Landon MD: [id number] [facility] [address], [place] [address] , Ph. [facility] [place] - [id number] [facility] 2021-08-14 07:17:00 2021-08-14 07:17:00 Outpatient Baum_L [facility] [id number] [facility] 2021-07-30 04:50:00 2021-07-30 04:50:00 Outpatient Baum_L U [facility] [id number] [facility] 2021-07-30 04:50:00 2021-07-30 04:50:00 Outpatient Baum_L [facility] [id number] [facility] 2021-07-23 11:51:00 2021-07-23 11:51:00 Outpatient Baum_L U [facility] [id number] [facility] 2021-07-23 02:08:00 2021-07-23 02:08:00 Outpatient [facility] [id number] [facility]
[2023-12-25 20:01] LABS: Absolute Basophils 0.1 K/uL (0-0.5); Absolute Lymphocytes (CBC) 0.9 K/uL (0.7-4.9); Absolute Monocytes 0.8 K/uL (0.1-1.3); Absolute Neutrophil 8.7 K/uL (1.8-8.0); Basophils % 0.8 % (0-1.3); Eosinophils % 0.1 % (0-4.4); Hematocrit 40.9 % (36.0-45.0); Hemoglobin 14.4 g/dL (12.0-15.0); Lymphocytes % 8.7 % (15.3-44.8); MCH 31.8 pg (27.0-35.0); MCHC 35.1 g/dL (32.0-36.0); MCV 90.5 fL (80-100); MPV 7.2 fL (7.6-11.3); Monocytes % 7.8 % (3.3-12.3); Neutrophils % 82.6 % (41.7-73.7); Platelets 268 thou/uL (152-406); RBC Red Blood Cell Count 4.52 M/uL (3.86-4.86); Red Cell Distribution Width 13.1 % (12.1-15.2)
[2023-12-25] MEDS ORDERED: NA CHLORIDE 0.9% 500 ML ONE (20:04)
--- NOTE | 2023-12-25 20:07 | RAD REPORT ---
EXAM: CT brain without contrast HISTORY: Alteration of consciousness. Dizziness COMPARISON: 2022 TECHNIQUE: Multiple contiguous axial images were obtained and a CT of the brain without contrast.. Sagittal and coronal reconstruction performed. Automated exposure control, adjustment of the mA and/or kV according to patient size, and/or iterative reconstruction. Unless otherwise specified, incidental f indings do not require dedicated imaging follow-up FINDINGS: An intracranial bleed is not seen Ventricles are normal caliber No extra-axial fluid collection noted No significant hypodensity within the brain. Empty sella turcica. No fluid within the visualized sinuses or mastoids noted. IMPRESSION: No acute intracranial abnormality noted. If the patient's symptoms persist MRI of the brain would be recommended.
--- NOTE | 2023-12-25 20:12 | RAD REPORT ---
Procedure: Chest Single View HISTORY: Fever COMPARISON: April 2023 FINDINGS: The lungs appear clear of acute infiltrate. No significant pleural effusion noted. The heart is moderately enlarged IMPRESSION: No acute abnormality is displayed.
[2023-12-25 20:20] LABS: Albumin 3.3 g/dL (3.4-5.0); Albumin/Globulin Ratio 0.8 (1.1-1.8); Anion Gap 11.1 mEq/L (5.0-15.0); Bilirubin Total 1.5 mg/dL (0.2-1.0); Globulin 4.1 g/dL (2.3-3.5); Potassium 4.1 mEq/L (3.5-5.1); Protein, Total 7.4 g/dL (6.4-8.2); Troponin High Sensitivity 11.4 pg/mL (<58.9)
[2023-12-25 20:44] LABS: Specific Gravity 1.013 (1.005-1.030); Urine Bilirubin NEGATIVE (Negative); Urine Blood 2+ (Negative); Urine Clarity Extremely Turbid (Clear); Urine Color Light-Orange (Yellow); Urine Glucose NEGATIVE (Negative); Urine Ketones TRACE (Negative); Urine Nitrite 2+ (Negative); Urine Protein 2+ (Negative); Urine Urobilinogen Normal (Normal)
--- NOTE | 2023-12-25 20:47 | EDPHYS ---
Physician Documentation [facility] Name: Deb Lozada Age: 68 yrs Sex: Female : 1955 Arrival Date: 12/25/2023 Time: 18:55 Bed 5 Private MD: ED Physician Quan Magaña HPI: 12/24 19:48 This 68 yrs old Female presents to ER via Unassigned with complaints of Fever - Altered.rt 19:48 Patient presents to the ED with confusion starting today. Patient finished a round of rt Augmentin for UTI about 3 days ago. Had a reported temperature to 99.5. Denies other acute complaints at this time, symptoms are moderate in severity, no other aggravating alleviating factors.. Historical: - Allergies: 19:55 altase; ha1 19:55 BLOOD PRESSURE MEDICINE THAT STARTS WITH "A"; ha1 21:05 Amoxicillin; ha1 - PMHx: 19:55 Diabetes - NIDDM; HLD; Hypertension; ha1 - PSHx: 19:55 Cholecystectomy; ha1 - Immunization history:: Adult Immunizations up to date. - Infectious Disease History:: Denies. - Family history:: not pertinent. - Social history:: Smoking status: Patient denies any tobacco usage or history of. ROS: 19:48 Constitutional: Negative for fever, chills, and weight loss, Cardiovascular: Negative rt for chest pain, palpitations, and edema, Respiratory: Negative for shortness of breath, cough, wheezing, and pleuritic chest pain, Abdomen/GI: Negative for abdominal pain, nausea, vomiting, diarrhea, and constipation, MS/Extremity: Negative for injury and deformity, Skin: Negative for injury, rash, and discoloration, 19:48 Constitutional: Positive for fever, malaise, Negative for 19:48 Neuro: Positive for altered mental status, Negative for loss of consciousness, Exam: 19:48 Constitutional: This is a well developed, well nourished patient who is awake, alert, rt and in no acute distress. Head/Face: Normocephalic, atraumatic. Chest/axilla: Normal chest wall appearance and motion. Nontender with no deformity. No lesions are appreciated. Cardiovascular: Regular rate and rhythm with a normal S1 and S2. No gallops, murmurs, or rubs. Normal PMI, no JVD. No pulse deficits. Respiratory: Lungs have equal breath sounds bilaterally, clear to auscultation and percussion. No rales, rhonchi or wheezes noted. No increased work of breathing, no retractions or nasal flaring. Abdomen/GI: Soft, non-tender, with normal bowel sounds. No distension or tympany. No guarding or rebound. No evidence of tenderness throughout. Skin: Warm, dry with normal turgor. Normal color with no rashes, no lesions, and no evidence of cellulitis. MS/ Extremity: Pulses equal, no cyanosis. Neurovascular intact. Full, normal range of motion. Neuro: Awake and alert, GCS 15, oriented to person, place, time, and situation. Cranial nerves II-XII grossly intact. Motor strength 5/5 in all extremities. Sensory grossly intact. Cerebellar exam normal. Normal gait. Vital Signs: 19:21 BP 178 / 77; Pulse 84; Resp 17 S; Temp 99.6(O); Pulse Ox 96% on R/A; Weight 129.27 kg; ha1 Height 5 ft. 10 in. ; 20:01 BP 167 / 84; Pulse 84; Resp 18 S; Pulse Ox 97% on R/A; ha1 21:00 BP 150 / 80; Pulse 81; Resp 17 S; Pulse Ox 98% on R/A; ha1 22:01 BP 152 / 66; Pulse 78; Resp 17 S; Temp 98.9(O); Pulse Ox 98% on R/A; ha1 19:21 Body Mass Index 40.89 (129.27 kg, 177.8 cm) [facility] MDM: 19:27 Medical Screening Exam initiated rt 20:12 Data reviewed: vital signs. ec2 20:12 ED course: Patient signed out to me by previous physician, in brief arrives today for ec2 evaluation of altered mental status. Plans to follow-up lab work and CT imaging. CT imaging of the head showed no acute intracranial process. CBC is reassuring.. 20:32 ED course: Metabolic profile shows renal dysfunction with creatinine 1.62. Lactate ec2 within normal ranges. Chest x-ray shows no acute intrathoracic process. Troponin within normal ranges.. 20:43 ED course: EKG independently reviewed and interpreted by me, shows normal sinus rhythm, ec2 rate of 81, no acute ST segment elevations, intervals are nonactionable, previously noted.. 20:46 ED course: Urine is infectious appearing with a UTI. Will give the patient ceftriaxone. ec2 Will admit for altered mental status, secondary to UTI.. 20:51 ED course: I discussed the results with the family, patient has made marked improvement ec2 in her symptoms, is no longer confused, is a coherent per family and I agree that she seems to be functional and conversational and alert and oriented individual without evidence of confusion. I offered inpatient hospitalization I discussed the results however felt comfortable with return to home, family elected to return to home. I tried to demonstrate return precautions. Will give him IV ceftriaxone and discharge after completion and will start on p.o. antibiotics.. 12/24 19:33 Order name: Blood Culture Adult (2) rt 12/24 19:33 Order name: CBC with Diff; Complete Time: 20:03 rt 12/24 19:33 Order name: CMP; Complete Time: 20:32 rt 12/24 19:33 Order name: Lactate w/ 2H reflex if indic.; Complete Time: 20:32 rt 12/24 19:33 Order name: Protime (+inr); Complete Time: 21:31 rt 12/24 19:33 Order name: Ptt, Activated; Complete Time: 21:31 rt 12/24 19:33 Order name: Urinalysis w/ reflexes; Complete Time: 20:51 rt 12/24 19:33 Order name: Troponin High Sensitivity; Complete Time: 20:32 rt 12/24 20:52 Order name: Urine Culture EDMS 12/24 19:33 Order name: Chest Single View XRAY; Complete Time: 20:32 rt 12/24 19:33 Order name: CT Head Brain wo Cont; Complete Time: 20:12 rt 12/24 19:33 Order name: Accucheck; Complete Time: 19:50 rt 12/24 19:33 Order name: Cardiac monitoring; Complete Time: 19:50 rt 12/24 19:33 Order name: EKG - Nurse/Tech; Complete Time: 19:50 rt 12/24 19:33 Order name: IV Saline Lock - Large Bore; Complete Time: 19:50 rt 12/24 19:33 Order name: Labs collected and sent; Complete Time: 19:50 rt 12/24 19:33 Order name: O2 Per Protocol; Complete Time: 19:50 rt 12/24 19:33 Order name: O2 Sat Monitoring; Complete Time: 19:50 rt 12/24 19:33 Order name: Vital Signs; Complete Time: 19:50 rt 12/24 20:03 Order name: Misc. Order: RECOLLECT BLUE TOP; Complete Time: 20:59 rv1 12/24 20:32 Order name: Cath; Complete Time: 20:33 ec2 Administered Medications: 20:33 Drug: NS 0.9% IV 500 ml IV at calculated rate once; to be given as a bolus over 30 ha1 minutes Route: IV; Rate: calculated rate; Site: right antecubital; 22:04 Follow up: Response: No adverse reaction; IV Status: Completed infusion; IV Intake: ha1 500ml 21:05 Drug: Rocephin IV 1 grams IV at calculated rate once; Given slow IV push per pharmacy ha1 instructions Route: IV; Rate: calculated rate; Site: right antecubital; 21:30 Follow up: Response: No adverse reaction; IV Status: Completed infusion; IV Intake: [id number] Disposition Summary: 12/25/23 21:30 Discharge Ordered Notes: Location: Home(12/25/23 21:30) ec2 Condition: Stable(12/25/23 21:30) ec2 Diagnosis - UTI/ Urinary tract infection, site not specified(12/25/23 21:30) ec2 - Altered mental status, unspecified ec2 Followup: ec2 - With: Private Physician - When: - Reason: Re-evaluation by your physician Discharge Instructions: - Discharge Summary Sheet ec2 - Urinary Tract Infection, Adult ec2 Forms: - Medication Reconciliation Form ec2 - Antibiotic Education ec2 - Prescription Opioid Use ec2 - Patient Portal Instructions ec2 - Leadership Thank You Letter ec2 Prescriptions: - cefuroxime axetil 500 mg Oral tablet - take 1 tablet ORAL route every 12 hours for 7 days; 14 tablet; Refills: 0, ec2 Product Selection Permitted Signatures: Dispatcher [employer] Gely Zavala RN RN 1 Brandon Ozuna MD MD rt Geraldine Mccoy rv1 Quan Magaña MD MD ec2 Corrections: (The following items were deleted from the chart) 19:34 19:34 BLOOD CULTURE*+BA.LAB.BRZ ordered. EDMS EDMS 19:34 19:34 CBC+H.LAB.BRZ ordered. EDMS EDMS 19:34 19:34 COMPREHENSIVE METABOLIC PANEL+C.LAB.BRZ ordered. EDMS EDMS 19:34 19:34 LACTATE+C.LAB.BRZ ordered. EDMS EDMS 19:34 19:34 PROTIME (+INR)+COAG.LAB.BRZ ordered. EDMS EDMS 19:34 19:34 PTT, ACTIVATED+COAG.LAB.BRZ ordered. EDMS EDMS 19:34 19:34 Urinalysis+U.LAB.BRZ ordered. EDMS EDMS 19:34 19:34 Troponin High Sensitivity+C.LAB.BRZ ordered. EDMS EDMS 19:34 19:34 Chest Single View+RAD.RAD.BRZ ordered. EDMS EDMS 19:34 19:34 Head Brain Wo Cont+CT.RAD.BRZ ordered. EDMS EDMS 20:50 20:47 Inpatient Admission ec2 ec2 20:50 20:47 Prince Lashawn ec2 ec2 20:50 20:47 Telemetry/MedSurg (Inpatient) ec2 ec2 20:50 20:47 Stable ec2 ec2 20:50 20:47 new ec2 ec2 20:50 20:47 are unchanged ec2 ec2 20:50 20:47 Standard ec2 ec2 20:50 20:47 ec2 ec2 20:50 20:47 UTI/ Urinary tract infection, site not specified ec2 ec2
--- NOTE | 2023-12-25 20:47 | ER ---
Nurse's Notes [facility] Name: Deb Lozada Age: 68 yrs Sex: Female : 1955 Arrival Date: 12/25/2023 Time: 18:55 Bed 5 Private MD: Diagnosis: UTI/ Urinary tract infection, site not specified;Altered mental status, unspecified Presentation: 12/24 19:21 Chief complaint: Patient states: FEELING TIRED, CONFUSED, WARM, SMELL IN URINE, BODY ha1 ACHES, EPIGASTRIC PAIN. Coronavirus screen: Vaccine status: At this time, the client does not indicate any symptoms associated with coronavirus-19. Ebola Screen: No symptoms or risks identified at this time. Initial Sepsis Screen: Does the patient meet any 2 criteria? No. Patient's initial sepsis screen is negative. Does the patient have a suspected source of infection? No. Patient's initial sepsis screen is negative. Risk Assessment: Do you want to hurt yourself or someone else? Patient reports no desire to harm self or others. Onset of symptoms was December 25, 2023. 19:21 Method Of Arrival: Wheelchair ha1 19:21 Acuity: CHAPARRITA 3 ha1 Triage Assessment: 19:21 General: Appears uncomfortable, Behavior is calm, cooperative. Pain: Complains of pain ha1 in epigastric area Pain does not radiate. Pain currently is 3 out of 10 on a pain scale. Quality of pain is described as burning, Pain began gradually. Neuro: Level of Consciousness is awake, alert, obeys commands, Oriented to person, place, situation, Reports FEELING CONFUSED AT TIMES . Cardiovascular: Capillary refill < 3 seconds Patient's skin is warm and dry. Respiratory: Airway is patent Respiratory effort is even, unlabored, Respiratory pattern is regular, symmetrical. GI: Abdomen is round non-distended, obese, Reports epigastric pain. : Reports BAD ODOR IN URINE. Derm: Skin is pink, warm \\T\\ dry. Musculoskeletal: Circulation, motion, and sensation intact. Range of motion: intact in all extremities. Historical: - Allergies: 19:55 altase; ha1 19:55 BLOOD PRESSURE MEDICINE THAT STARTS WITH "A"; ha1 21:05 Amoxicillin; ha1 - PMHx: 19:55 Diabetes - NIDDM; HLD; Hypertension; ha1 - PSHx: 19:55 Cholecystectomy; ha1 - Immunization history:: Adult Immunizations up to date. - Infectious Disease History:: Denies. - Family history:: not pertinent. - Social history:: Smoking status: Patient denies any tobacco usage or history of. Screenin:59 [facility] ED Fall Risk Assessment (Adult) History of falling in the last 3 months, ha1 including since admission Yes- single mechanical fall (1 pt) Confusion or Disorientation Yes (5 pts) Intoxicated or Sedated No (0 pts) Impaired Gait No (0 pts) Mobility Assist Device Used Yes (1 pt) Altered Elimination Yes (1 pt) Score/Fall Risk Level 3 or more points = High Risk Oriented to surroundings, Maintained a safe environment, Educated pt \\T\\ family on fall prevention, incl call for assistance when getting out of bed, Hourly rounding (assess needs \\T\\ fall precautionary measures) done. Abuse screen: Denies threats or abuse. Denies injuries from another. Nutritional screening: No deficits noted. Tuberculosis screening: No symptoms or risk factors identified. Assessment: 19:21 Reassessment: SEE TRIAGE ASSESSMENT. ha1 20:20 Reassessment: Patient and/or family updated on plan of care and expected duration. Pain ha1 level reassessed. Patient is alert, oriented x 3, equal unlabored respirations, skin warm/dry/pink. 21:20 Reassessment: Patient and/or family updated on plan of care and expected duration. Pain ha1 level reassessed. Patient is alert, oriented x 3, equal unlabored respirations, skin warm/dry/pink. Patient denies pain at this time. Patient states feeling better. Patient states symptoms have improved. 22:03 Reassessment: Patient and/or family updated on plan of care and expected duration. Pain ha1 level reassessed. Patient is alert, oriented x 3, equal unlabored respirations, skin warm/dry/pink. provided education on preventative measures to prevent a UTI. Vital Signs: 19:21 BP 178 / 77; Pulse 84; Resp 17 S; Temp 99.6(O); Pulse Ox 96% on R/A; Weight 129.27 kg; ha1 Height 5 ft. 10 in. ; 20:01 BP 167 / 84; Pulse 84; Resp 18 S; Pulse Ox 97% on R/A; ha1 21:00 BP 150 / 80; Pulse 81; Resp 17 S; Pulse Ox 98% on R/A; ha1 22:01 BP 152 / 66; Pulse 78; Resp 17 S; Temp 98.9(O); Pulse Ox 98% on R/A; ha1 19:21 Body Mass Index 40.89 (129.27 kg, 177.8 cm) ha1 ED Course: 18:57 Patient arrived in ED. ra3 19:21 Allergy band placed. Bed in low position. Call light in reach. Side rails up X2. Adult ha1 w/ patient. 19:21 Provided Education on: PLAN OF CARE . ha1 19:21 Arm band placed on right wrist. ha1 19:22 Brandon Ozuna MD is Attending Physician. rt 19:25 Inserted saline lock: 20 gauge in right antecubital area, using aseptic technique. ha1 Blood collected. Flushed with 10 mL NS. 19:47 CT Head Brain wo Cont In Process Unspecified. EDMS 19:49 Gely Mei, RN is Primary Nurse. ha1 19:50 Blood Culture Adult (2) Sent. ha1 19:50 CBC with Diff Sent. ha1 19:50 Lactate w/ 2H reflex if indic. Sent. ha1 19:50 Protime (+inr) Sent. ha1 19:51 Ptt, Activated Sent. ha1 19:55 Triage completed. ha1 20:00 Chest Single View XRAY In Process Unspecified. EDMS 20:03 Attending Physician role handed off by Brandon Ozuna MD ec2 20:03 Quan Magaña MD is Attending Physician. ec2 20:47 Prince Hardin MD is Hospitalizing Provider. ec2 20:59 Urine Culture Sent. ha1 22:02 No provider procedures requiring assistance completed. IV discontinued, intact, ha1 bleeding controlled, No redness/swelling at site. Pressure dressing applied. Administered Medications: 20:33 Drug: NS 0.9% IV 500 ml IV at calculated rate once; to be given as a bolus over 30 ha1 minutes Route: IV; Rate: calculated rate; Site: right antecubital; 22:04 Follow up: Response: No adverse reaction; IV Status: Completed infusion; IV Intake: ha1 500ml 21:05 Drug: Rocephin IV 1 grams IV at calculated rate once; Given slow IV push per pharmacy ha1 instructions Route: IV; Rate: calculated rate; Site: right antecubital; 21:30 Follow up: Response: No adverse reaction; IV Status: Completed infusion; IV Intake: [id number] Medication: 20:00 VIS not applicable for this client. ha1 Intake: 21:30 IV: 50ml; Total: 50ml. ha1 22:04 IV: 500ml; Total: 550ml. ha1 Outcome: 20:47 Decision to Hospitalize by Provider. ec2 21:30 Discharge ordered by MD. ec2 22:03 Discharged to home via wheelchair, with family, ha1 22:03 Condition: stable 22:03 Discharge instructions given to patient, family, Instructed on discharge instructions, follow up and referral plans. medication usage, Demonstrated understanding of instructions, follow-up care, medications, Prescriptions given X 1, 22:05 Patient left the ED. ha1 Signatures: Dispatcher [employer] Gely Zavala RN RN ha1 Brandon Ozuna MD MD rt Quan Magaña MD MD 2 Nury Lofton 3
[2023-12-25 20:48] LABS: Sqamous Epithelial <5 /HPF (None Seen); Urine Bacteria 20-50 /HPF (<20); Urine Culture Reflex Order REFLEXED; Urine Microscopic Reflex YN ORDER UMIC; Urine RBC <5 /HPF (None Seen); Urine WBC 20-50 /HPF (<5)
[2023-12-25 20:49] LABS: Urine Mucus Slight /HPF (None Seen)
[2023-12-25] MEDS ORDERED: CEFTRIAXONE 1000 MG/VIAL ONE (21:01)
[2023-12-25 21:17] LABS: PT Prothrombin Time 14.3 SECONDS (9.4-12.5); Protime INR 1.29
[2023-12-25 22:11] VITALS: O2SAT 98
[2023-12-25 22:12] VITALS: BP 152/66; TEMP 98.9
--- NOTE | 2023-12-28 12:07 | EKG ---
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
== END 2023-12-25 22:05 | disposition home or self-care (01) ==
LOC: ER 18:55
DX: N39.0 Urinary tract infection, site not specified (principal); E11.9 Type 2 diabetes mellitus without complications; I10 Essential (primary) hypertension
CPT/HCPCS: 96365; 96361; 87040 ×2; 87088; 85025; 81001; 87086; 36415; 87205 ×3; 85610; 83605; 85730; 87077; 87186; 81003; 84484; 80053; 70450; 71045; 99284; J7040; J0696; 93005